=== PATIENT | male | born 1995 | race Caucasian/White ===

== ENCOUNTER 2025-08-18 23:34 | Inpatient (IN) | payer BC ==
[~2025-08-18] VITALS: Ht 170.2 cm; Wt 85.5 kg
--- NOTE | 2025-08-19 00:52 | Physician Documentation ---
History of Present Illness ~ Chief Complaint: Difficulty Breathing Stated Complaint: FLUID IN LUNG Time Seen by MD: 00:34 HPI 30-year-old male, type 1 diabetes, presenting with shortness of breath The patient has a recent history of pneumonia with what sounds like an empyema requiring a chest tube. The chest tube was recently removed. He has been doing okay, but then again started to worsen over the past several days. He reports increased shortness of breath. He does have some discomfort with deep breathing on the right side. He does have an ongoing cough. No fevers or other infectious symptoms. His shortness of breath is mostly with exertion, he does not really feel short of breath at rest currently. He went to an outside hospital today and had an extensive workup including an EKG, blood testing, and a chest x-ray. The x-ray showed a buildup of fluid in his lungs again on the right side. Reportedly they consulted their surgeon who recommended transfer for similar with CT surgery to consider a possible VATS. Medication Reconciliation Allergies: Coded Allergies: No Known Allergies (Unverified , 08/18/25) Review of Systems Constitutional: Denies: fever Respiratory: Reports: cough, SOB with exertion Cardiovascular: Reports: chest pain Physical Exam Vital Signs: Temperature: 98.7, Heart Rate: 107, Respiratory Rate: 22, BP: 141/75, Pulse Oximetry: 97, Weight: 77.000 Oxygen Flow Rate: 0 Physical Exam General: This is a pleasant and healthy appearing young man sitting calmly in bed, not in distress, mother at bedside HEENT: Atraumatic, oropharynx is moist Heart: Regular rate and rhythm, normal-appearing peripheral perfusion Lungs: The patient has significantly diminished breath sounds in the right l ower half of the lungs, clear breath sounds on the left. Normal oxygen saturation on room air Chest wall: The patient has a healing scar over the right lateral ribs consistent with previous chest tube location Neuro: Alert and oriented Psychiatric: Calm and cooperative with exam Progress Results/Orders Results/Orders Orders - JEAN MARR MD Ct Chest (08/19/25 00:55) Insulin Lispro 100 Unit/Ml 3ml (Humalog (08/19/25 01:05) Completed Orders - JEAN MARR MD Ct Chest (08/19/25 00:55) Insulin Lispro 100 Unit/Ml 3ml (Humalog (08/19/25 01:21) Medications Received in ER Medications (Trade) Dose Ordered Sig/Destiny Route PRN Reason Start Time Stop Time Status Last Admin Dose Admin (Humalog Kwikpen U-100 (100 Unit/ ml) 3ml) 5 unit HMO SQ 08/19/25 01:05 08/19/25 01:31 5 UNIT Vital Signs 08/18/25 08/19/25 23:45 00:41 Temp 98.7 Pulse 107 Resp 22 18 B/P (MAP) 141/75 Pulse Ox 97 O2 Flow Rate 0 Laboratory Tests Test 08/19/25 00:35 Glucometer 378 H EKG/XRAY/CT/US/VASC/MRI CT : Impression I personally interpreted the CT scan, and this shows a loculated right-sided pleural effusion Consults/PCP Consults/PCP : Additional Comment Consult: I spoke to the internal medicine service, for admission in the hospital Medical Decision Making Additional info obtained from: old records Findings I reviewed records from the outside hospital including blood work, EKG and chest x-ray Additional Infomation The patient presents with worsening shortness of breath after recent empyema and chest tube. On exam he does have findings concerning for increased fluid bu ildup in the right lower lung field. He had an extensive workup already today including blood testing that was unremarkable, normal cardiac biomarkers, and a chest x-ray. Plan: CT chest CT shows a loculated pleural effusion. Plan will be for admission of the medicine service with plan for a CT surgery consult for further treatment tomorrow. Departure Impression: Primary Impression: Exertional shortness of breath Additional Impression: Loculated pleural effusion Referrals: NO PRIMARY CARE PROVIDER (PCP) Signature Scribe Signature: na Attestation: JEAN Wilson MD Aug 19, 2025 00:52
--- NOTE | 2025-08-19 01:19 | RADIOLOGY REPORT ---
CT Chest without intravenous contrast INDICATION: sob, pleural effusion, recent chest tube, eval fluid TECHNIQUE: Multidetector spiral CT of the chest was performed from the lung apices to the upper abdomen. Axial, coronal and sagittal multiplanar reformats were performed. Radiation dose : 1. Chest: CTDI volume is 13.79 mGy. Dose-length product is 473.53 mGy*cm The dose indicators for CT are the volume computed tomography (CT) dose index (CTDIvol) and the dose length product (DLP), and are measured in units of mGy and mGy-cm, respectively. These indicators are not patient dose, but values generated from the CT scanner acquisition factors. The report includes radiation exposure data for exposures received during this examination. Comparison: None Findings: Lower neck: Normal thyroid. Lungs: Moderate atelectatic changes along the periphery of the right lung. Minimal dependent atelectasis changes within the basal left lower lobe. Heart/Vascular Structures: Normal heart size. No pericardial effusion. Lymph Nodes: Multiple low volume mediastinal and bilateral hilar lymph nodes, likely reactive. Pleura: Moderate loculated appearing right-sided pleural effusion with a small volume of air in the right pleural space. Suspect some pleural thickening. Contrast not administered. Small left-sided primal fusion. Musculoskeletal: No acute osseous abnormality. Soft tissues: Normal. Upper abdomen: Limited portions of the upper abdomen are unremarkable. IMPRESSION: Moderate loculated appearing right-sided pleural effusion that appears prominently fluid density. Suspected underlying pleural thickening, better assessed with contrast Moderate atelectasis song the periphery of the right lung. Radiation optimization: All CT scans at this facility use at least one of these dose optimization techniques: automated exposure control mA and/or kV adjustment per patient size (includes targeted exams where dose is matched to clinical indication) or iterative reconstruction.
[2025-08-19] MEDS: INSULIN LISPRO 100 UNIT/ML INSULN.PEN MULTI-DOSE SQ SCH ×3 (01:31→12:00)
[2025-08-19] MEDS: INSULIN LISPRO 100 UNIT/ML INSULN.PEN MULTI-DOSE SQ ONE (01:40)
[2025-08-19 02:20] LABS: MEAN PLATELET VOLUME 7.8 FL (7.4-10.4); RED CELL DISTRIBUTION WIDTH 13.2 % (11.5-14.5)
[2025-08-19 02:28] LABS: INR 1.1 INR
[2025-08-19 02:45] LABS: PLATELET ESTIMATE INCREASED
[2025-08-19 02:48] LABS: CREATININE 1.73 MG/DL (0.60-1.10); TOTAL CARBON DIOXIDE 25.4 MMOL/L (24-32); eCRCL 59 ML/MIN; eGFR 47 ML/MIN
[2025-08-19] MEDS ORDERED: magnesium Cl slow-release 64mg tablet PO PRN (03:15)
[2025-08-19] MEDS ORDERED: HYDROcodone/acetaminophen 5mg/325mg tablet PO PRN (03:15)
[2025-08-19] MEDS ORDERED: magnesium sulf-water 4G/100mL 100 ML IV PRN (03:15)
[2025-08-19] MEDS ORDERED: magnesium hydroxide 30ml (MOM) UD suspension PO PRN (03:15)
[2025-08-19] MEDS ORDERED: potassium Cl 20 mEq SR tablet PO PRN ×2 (03:15)
[2025-08-19] MEDS ORDERED: magnesium sulf-water 2g/50mL 50 ML IV PRN (03:15)
[2025-08-19] MEDS ORDERED: potassium Cl 40MEQ/1/2NS 520ml 520 ML IV PRN (03:15)
[2025-08-19] MEDS ORDERED: dextrose 50%-water 50ml dispensing syringe IV PRN ×3 (03:20→09:55)
[2025-08-19] MEDS ORDERED: glucagon, human recombinant 1mg kit SUBCUT PRN ×2 (03:20→09:55)
[2025-08-19] MEDS ORDERED: DEXTROSE 15 GM of carb/4 tabs (each vial/BOTTLE has 4 tablets) PO PRN ×3 (03:20→09:55)
--- NOTE | 2025-08-19 03:37 | HISTORY AND PHYSICAL-Residence ---
History & Physical Providers to CC Resident Creating Document: LOYDARUBAASCENCION ~ History of Present Illness Primary Medical Doctor: Eugene Reason for Admit\Complaint: Right-side pleural effusion History of Present Illness This is in 30-year-old male patient with a past medical history of type 1 diabetes mellitus who was transferred from [facility] due to right-sided loculated pleural effusion. Patient had severe shortness of breath, productive cough and chest tightness few weeks ago, was admitted at [facility] [place] on August 02 for pneumonia with parapneumonic effusion. Patient was treated with thoracocentesis, chest tube and IV antibiotics. Chest tube was removed and he was discharged on August 10 with p.o. cefdinir. Patient returned today to the hospital due to persistent shortness of breath with exertion, which is stable since discharge. Patient has been feeling weak but denies fever, chills, nocturnal sweating or productive cough. He also complains of nausea and diarrhea, denies abdominal pain or urinary symptoms. This is the 1st episode of pneumonia and he denies any tobacco or drug history. Allergies: Coded Allergies: No Known Allergies (Unverified , 08/18/25) Past Medical History Past Medical History Type 1 diabetes mellitus complicated with peripheral neuropathy Past Surgical History Surgical History Comment None reported Past Social History Smoking: Non-Smoker Alcohol Use: None Drug Use: None Lives with: Other (Girlfriend) Lives In: Home Occupation: employed (Road construction) ROS Constitutional: Reports: malaise, weakness; Denies: fever Eyes: Denies: no symptoms reported, see HPI, pain, discharge, blurred vision, double vision, itching, photophobia, redness, tearing, other ENT: Denies: no symptoms reported, see HPI, ear pain, ear bleeding, ear discharge, hearing loss, ear ringing, nose pain, nose bleeding, nose congestion, nose discharge, throat pain, throat swelling, voice change, mouth pain, mouth bleeding, mouth swelling, other Respiratory: Reports: cough, SOB with exertion Cardiovascular: Reports: chest pain Gastrointestinal: Reports: nausea, diarrhea Genitourinary: Denies: no symptoms reported, see HPI, burning, discharge, dysuria, frequency, flank pain, hematuria, incontinence, pain, decreased urine output, urgency, other Male Genitalia: Denies: no symptoms reported, see HPI, penile discharge, penile sore, testicular pain, testicular swelling, other Neurological: Denies: no symptoms reported, see HPI, speech problem, headache, dizziness, fainting, tingling, left sided numbness, right sided numbness, left sided weakness, right sided weakness, problems walking, unable to move lower ext, unable to move upper ext, petit mal seizures, tonic-clonic seizures, cognitive dysfunction, other Musculoskeletal: Denies: no symptoms reported, see HPI, pain, swelling, back pain, gout, joint pain, joint swelling, muscle pain, muscle swelling, muscle stiffness, neck pain, other Integumentary: Denies: no symptoms reported, see HPI, rash, itching, lesions, lumps, bruise(s), wound(s), laceration(s), dryness, change in color, other Allergic/Immunologic: Denies: no symptoms reported, see HPI, hives, itching, frequent infections, difficulty healing, other Hematologic/Lymphatic: Denies: no symptoms reported, see HPI, anemia, blood clots, easy bleeding, easy bruising, swollen glands, other Endocrine: Denies: no symptoms reported, see HPI, excessive sweating, flushing, intolerance to cold, intolerance to heat, increased hunger, increased thrist, increased urine, unexplained weight gain, unexplained weight loss, other Psychiatric: Denies: no symptoms reported, see HPI, depression, anxiety, sleeplessness, hopeless, suicidal, hallucinations, other Exam Vitals: Vital Signs Date Time Temp Pulse Resp B/P (MAP) Pulse Ox O2 Delivery O2 Flow Rate FiO2 08/19/25 03:23 99 16 150/84 (106) 94 08/19/25 00:30 0 08/18/25 23:45 98.7 General: General: Awake and alert, no acute distress HEENT: Conjunctiva pink, Sclera clear, Mucus Membranes dry Neck: No masses and tenderness Resp: Unlabored. Decreased breath sounds in the right lung base associated with crackles. No wheezing noted. Cardiovascular: Regular Rate and rhythm, normal S1 and S2 without murmur, rub or gallop Abdomen: Slightly distended, soft and nontender, no organomegaly, no guarding and rigidity, bowel sounds present Neuro: No focal weakness in the upper and lower limb muscles, normal reflexes bilaterally. Cranial nerves II-XII grossly intact Extremities: 1+ lower extremity peripheral edema (chronic) Skin: Warm and Dry Psych: Calm and cooperative at the time of my visit. Diagnostic Data Last Recorded Lab Results: 08/19/25 0203 08/19/25 0203 Diagnostic Data: Laboratory Tests Test 08/19/25 02:03 Prothrombin Time 11.4 SECONDS (9.0-12.0) INR International Normalized Ratio 1.1 INR Coagulation Comments Advance Care Planning Advanced Care plannin - 30 Minutes (I have discussed advanced care directives in detail. Patient requests full code status.) Additional Plan Assessment 30-year-old male patient transferred from [facility] [place] due to parapneumonic loculated pleural effusion. Sepsis secondary to complicated community-acquired pneumonia (3 SIRS criteria + source of infection) Persistent right side parapneumonic effusion with loculation Possibly complicated by diabetic immunosuppression Patient presented initially on August 02 for productive cough, chest tightness and shortness for breath Was treated with thoracocentesis, chest tube was discharged on August 10 with p.o. cefdinir Return at [facility] [place] for persistent shortness of breath after discharge No fever, chills, chest pain or productive cough present now WBC 13.1, pending procalcitonin and ESR Currently on room air Chest CT: Moderate loculated appearing right-sided pleural effusion with a small volume of air in the right pleural space. Suspect some pleural thickening. Plan Started on Zosyn and IV fluids Ordered blood cultures Incentive spirometry Pending report from [facility] [place] with previous culture Cardiothoracic surgery consult in the morning for possible VATS procedure Uncontrolled type 1 diabetes mellitus complicated with peripheral neuropathy Patient states insulin compliance On 39 units of glargine at bedtime Placed on high dose hyper/hypoglycemia protocol Ordered A1c Adjust accordingly Acute kidney injury, possibly secondary to vasomotor nephropathy Longstanding diabetes, poor oral intake and sepsis as contributors Cr 1.73, BUN 19, no baseline creatinine to compare Ordered urine lytes Received 1000 mL of lactated ringer bolus Started on lactated ringer 100 mL/hr Code Status: Full code DVT prophylaxis: Heparin Analgesia/sedation: Morphine/[place] Line/tube: PIV GI prophylaxis: None Nutrition: NPO for now Prognosis: Guarded Physical therapy: Not needed at this moment Disposition: Admit to ortho floor. Cardiothoracic surgery consult pending. Patient evaluated using HIPPA compliant AV device Agree with plans as discussed with the resident Sona Rich MD Date of Service: Aug 19, 2025 Billing Provider: AMEENA WOODS MD, LUCAS, RES Aug 19, 2025 03:36 SONA RICH MD Aug 19, 2025 04:23
[2025-08-19] MEDS: insulin glargine (Lantus) pen - multi-dose SQ ONE ×2 (03:52→04:13)
[2025-08-19] MEDS: ringers solution, lacted 1,000 ML IV ONE (04:10)
[2025-08-19 05:29] LABS: LEUKOCYTE ESTERASE ,URINE NEGATIVE (Neg); NITRITES, URINE NEGATIVE (Neg); OCCULT BLOOD,URINE MODERATE (Neg)
[2025-08-19 05:30] LABS: UA COLLECTION TYPE CLN CATCH MIDSTREAM
[2025-08-19 05:35] LABS: HYALINE CASTS 0-3 /LPF (NEGATIVE); SQUAMOUS EPITHELIAL CELL,UR NONE SEEN /LPF (FEW)
[2025-08-19 05:36] LABS: OSMOLALITY UA 548.0 MOSM/K (50-1400)
[2025-08-19 05:37] LABS: CREATININE,URINE RANDOM 57.0 MG/DL
[2025-08-19] MEDS: ringers solution, lacted 1,000 ML IV SCH (05:47)
[2025-08-19 06:55] LABS: OSMOLALITY 321 MOSM/K (280-300)
[2025-08-19] MEDS: docusate sod 100mg capsule PO SCH (08:00)
[2025-08-19] MEDS: K and/or MAG REPLACEMENT MC SCH (08:00)
[2025-08-19] MEDS: heparin, porcine 5000 units/ml vial SQ SCH (08:35)
[2025-08-19] MEDS: piperacillin/tazo 4.5gm/100ml 100 ML IV SCH (09:32)
[2025-08-19 09:57] VITALS: BP 149/94; PULSE 97; RESP 18; TEMP 97.8; O2SAT 96
[2025-08-19 10:00] VITALS: BP 136/83; PULSE 94; RESP 19; TEMP 98.3; O2SAT 93
[2025-08-19] MEDS: dextrose 50%-water 50ml dispensing syringe IV PRN (11:07)
[2025-08-19] MEDS ORDERED: INSU100I8 SQ (11:17)
[2025-08-19] MEDS ORDERED: INSU200I4 SQ (11:17)
[2025-08-19 13:09] VITALS: RESP 18; O2SAT 96
[2025-08-19] MEDS: LIDOcaine 1% (10mg/ml)w/preservative inj. 20ml MDV SQ ONE (14:35)
[2025-08-19] MEDS ORDERED: LIDOcaine-PF 1% 20mL vial 20 ML VIAL IJ ONE (17:05)
--- NOTE | 2025-08-19 17:24 | PROCEDURE NOTE- Residance ---
Procedure Note Providers to ~ Description Chest Tube Procedure Note INDICATION: Right Loculated Pleural Effusion PROCEDURE CRIPPLE CUTTER: ATTENDING PHYSICIAN: In attendance (Y/N) _Y CONSENT: Consent was obtained prior to the procedure. Indications, risks, and benefits were explained at length. PROCEDURE SUMMARY: A time out was performed and after the chest x-ray was reviewed, the appropriate side was confirmed and marked. My hands were washed immediately prior to the procedure. I wore a sterile gloves throughout the procedure. The patient was prepped and draped in a sterile manner using chlorhexidine scrub after the patient was positioned in the usual fashion. A total of ml of 1% lidocaine was used to anesthesize the skin, subcutaneous tissue, superior aspect of the rib periosteum and parietal pleura. A 2 cm incision was then made parallel to the rib in the midaxillary line at the level of the space of 5th rib. The subcutaneous tissue superficial and superior to the rib was dissected bluntly to the level of the pleura. Under ultrasound guidance. The pleura was then entered was noted from the pleural space. The disruption in the parietal pleura was expanded bluntly and a finger was inserted and swept carefully in all directions. A Pigtail catheter was then inserted using my finger as a guide . The chest tube was directed and inserted easily. The chest tube was sutured to the skin at the insertion site, and connected securely with tape to a pleurovac. A sterile occlusive dressing was placed over the insertion site. No immediate complications were noted. A post-procedure chest x-ray is pending at the time of this note. Estimated blood loss is less than 1 ml. Date of Service: Aug 19, 2025 Billing Provider: ELISEO FABIAN MD, SHAMS, RES Aug 19, 2025 17:24
--- NOTE | 2025-08-19 17:26 | CONSULTATION REPORT - RESIDENT ---
Consult Providers to CC Resident Creating Document: IAN MANRIQUE RES History of Present Illness Reason for Admit\Complaint: Shortness of breaths History of Present Illness The patient is a 30-year-old male with type 1 diabetes, who was initially admitted to [facility] on August 02 with pneumonia complicated by parapneumonic infusion. He underwent thoracentesis with removal of more than 1.5 L of fluid, followed by chest tube placement and IV antibiotics. On August 10, the chest tube removed and he was discharged home with oral antibiotics. He subsequently returned to the transferring facility with persistent exertional shortness of breath and was referred here for further management. Dr. Hernandez was consulted for evaluation of recurrent right-sided loculated pleural effusion and possible chest tube placement Allergies: Coded Allergies: No Known Allergies (Unverified , 08/18/25) Home Medications Home Medications Active Reported Humalog (Insulin Lispro) 100 Unit/Ml Insuln.pen 0-60 Units SQ DAILY Tresiba Flextouch U-200 (Insulin Degludec) 200 Unit/Ml (3 Ml) Insuln.pen 39 Units SQ HS Past Medical History Past Medical History Diabetes type 1, peripheral neuropathies Past Surgical History Surgical History Comment Non ROS ROS As stated above in the HPI, otherwise all systems are reviewed and negative. Exam Vitals: Vital Signs Date Time Temp Pulse Resp B/P (MAP) Pulse Ox O2 Delivery O2 Flow Rate FiO2 08/19/25 13:09 18 96 Room Air 08/19/25 09:57 97.8 97 149/94 (112) 08/19/25 06:02 0 General: Awake and Alert, no acute distress. HEENT: Conjunctiva pink, Sclera clear, Mucus Membranes moist. Neck: Supple without masses and tenderness. Resp: Unlabored. Lungs clear to auscultation bilaterally. Heart: Regular Rate and rhythm, normal S1 and S2 without murmur, rub or gallop. Abdomen: Soft and non tender no organomegaly Extremities: No cyanosis,clubbing or edema. Skin: Warm and Dry. Diagnostic Data Last Recorded Lab Results: 08/19/25 0203 08/19/25 0203 Diagnostic Data: Laboratory Tests Test 08/19/25 02:03 Prothrombin Time 11.4 SECONDS (9.0-12.0) INR International Normalized Ratio 1.1 INR Coagulation Comments Additional Plan The patient has a right-sided loculated pleural effusion. Plan is to place a pigtail catheter for drainage and administer intrapleural tPA/DNase to facilitate resolution of the loculation. He is currently being treated with IV Zosyn by the primary team for pneumonia/parapneumonic effusion. His other comorbidities including type 1 diabetes mellitus with peripheral neuropathy; glucose control will be managed using the inpatient insulin protocol by the primary team. Ian Manrique Internal Medicine Resident, PGY-3 Date of Service: Aug 19, 2025 Billing Provider: ELISEO HERNANDEZ MD,IAN, RES Aug 19, 2025 17:26
[2025-08-19 18:00] VITALS: BP 153/90; PULSE 89; RESP 13; TEMP 98.2; O2SAT 98
[2025-08-19] MEDS: dornase alfa 2.5mg/2.5mL 10 MG in normal saline 50ml IV soln 20 ML IPL ONE (18:00)
[2025-08-19] MEDS: tPA-cathflo 2mg/2ml IV flush 15 MG in normal saline 50ml IV soln 15 ML IPL ONE (18:00)
[2025-08-19] MEDS: LIDOcaine 1% 30ml preserv. free vial IJ ONE (18:00)
--- NOTE | 2025-08-19 18:14 | RADIOLOGY REPORT ---
EXAM: DI CHEST,SINGLE VIEW HISTORY: POST CHEST TUBE PLACEMENT TECHNIQUE: 1 view of the chest COMPARISON: CT CT CHEST on DOS: 08/19/25 FINDINGS/IMPRESSION: LUNGS: Low lung volumes, which cause crowding of the bronchovascular markings. Small right-sided pleural effusion. Right-sided chest tube in place. Peripheral interstitial edema. Alveolar opacity in the right lung base. No pneumothorax. MEDIASTINUM: Normal cardiac size BONES: No acute osseous abnormality OTHER: None
[2025-08-19 20:00] VITALS: RESP 13; O2SAT 98
[2025-08-19] MEDS: insulin glargine (Lantus) pen - multi-dose SQ SCH (21:49)
[2025-08-19 22:00] VITALS: BP 151/84; PULSE 94; RESP 19; TEMP 98.6; O2SAT 96
[2025-08-20] MEDS: ondansetron/PF 4mg/2ml inj IV PRN (04:28)
[2025-08-20 06:00] VITALS: BP 132/83; PULSE 93; RESP 16; TEMP 98.2; O2SAT 98
--- NOTE | 2025-08-20 06:12 | RADIOLOGY REPORT ---
CHEST RADIOGRAPH Indication: CHEST TUBE CHECK Technique: 1 view of the chest Comparison: DI CHEST,SINGLE VIEW on DOS: 08/19/25, CT CT CHEST on DOS: 08/19/25, DI CHEST,SINGLE VIEW on DOS: 08/19/25 FINDINGS: Lines and Tubes: Right sided chest tube insitu Lungs: right basilar opacity. Pleura: improving right effusion No pneumothorax. Cardiomediastinal contours: Unremarkable Bones: No acute osseous abnormality. IMPRESSION: improving right effusion
[2025-08-20 06:55] LABS: MEAN PLATELET VOLUME 7.9 FL (7.4-10.4); RED CELL DISTRIBUTION WIDTH 13.3 % (11.5-14.5)
[2025-08-20 07:37] LABS: CREATININE 1.36 MG/DL (0.60-1.10); TOTAL CARBON DIOXIDE 27.7 MMOL/L (24-32); eCRCL 75 ML/MIN; eGFR 62 ML/MIN
[2025-08-20 08:00] VITALS: RESP 16; O2SAT 98
[2025-08-20] MEDS: DEXTROSE 15 GM of carb/4 tabs (each vial/BOTTLE has 4 tablets) PO PRN (08:07)
[2025-08-20] MEDS ORDERED: DORNASE ALFA 1 MG/ML IH SCH (08:50)
[2025-08-20 11:00] VITALS: BP 135/81; PULSE 94; RESP 16; TEMP 97.5; O2SAT 95
[2025-08-20] MEDS: INSULIN LISPRO 100 UNIT/ML INSULN.PEN MULTI-DOSE SQ SCH (12:00)
--- NOTE | 2025-08-20 14:00 | PROGRESS NOTE ---
Subjective Subjective Patient is seen today. We placed a right 12 Tanzanian chest tube for suspected empyema. Reason for visit: Pulmonology follow-up Reviewed: Care Plan, H&P, Labs, Medications, Radiology Review of Systems Changes from previous H/P or p: No Changes Daily Progress Note Exam Vitals Vital Signs Date Time Temp Pulse Resp B/P (MAP) Pulse Ox O2 Delivery O2 Flow Rate FiO2 08/20/25 11:00 97.5 94 16 135/81 (99) 95 Room Air 08/19/25 06:02 0 Result Diagram: 08/20/25 0547 08/20/25 0547 Exam HEENT examination: N/C/AT, PERRLA Neck: Supple with no jugular venous distention no lymphadenopathy. Chest: Symmetric expansion bilaterally Pulmonary: Diminished breath sounds right side Abdomen: Soft nontender Extremities: No cyanosis clubbing edema. Results Coagulation Studies Laboratory Tests Test 08/19/25 02:03 Prothrombin Time 11.4 SECONDS (9.0-12.0) INR International Normalized Ratio 1.1 INR Coagulation Comments VTE VTE Risk Score VTE Risk Score Reference Ranges: Score 0-1 = Low Risk (Aggressive mobilization; early ambulation; no VTE prophylaxis required) Score 2: Moderate Risk (Intermittent/Pneumatic Compression Device OR Lovenox/Heparin/Coumadin) Score 3-4: High Risk (Intermittent/Pneumatic Compression Device AND Lovenox/Heparin/Coumadin) Score > or = 5: Highest Risk (Intermittent/Pneumatic Compression Device AND Lovenox/Heparin/Coumadin) Assessment/Plan Plan Status post right chest tube utilizing a 12 Tanzanian tube. He has drained about 1600 cc of serosanguineous fluid. Unfortunately there was no pleural fluid that was sent for analysis. We will continue with instillation of 15 mg of tPA and 10 mg of dornase for a total of six doses. ELISEO FABIAN MD Aug 20, 2025 14:00
--- NOTE | 2025-08-20 17:33 | PROGRESS NOTE- Residence ---
Progress Note - Resident Providers to CC Resident Creating Document: TYREE ROMEO RES ~ Antibiotic Timeout Antibiotic Ordered?: Yes Subjective Patient is seen today. Blood sugars are well controlled today. Cough is improving. Patient had 1600 mL output from the chest tube today. Patient missed dose of tPA and dornase luz due to non availability in the pharmacy. Patient received one dose of far. Patient needs five more doses before discharge. Objective Vital Signs Date Time Temp Pulse Resp B/P (MAP) Pulse Ox O2 Delivery O2 Flow Rate FiO2 08/20/25 15:27 16 08/20/25 11:00 97.5 94 135/81 (99) 95 Room Air 08/19/25 06:02 0 Result Diagram: 08/20/25 0547 08/20/25 0547 General: Awake and alert, no acute distress HEENT: Conjunctiva pink, Sclera clear, Mucus Membranes moist Neck: No masses and tenderness Resp: Unlabored. Decreased breath sounds in the right lung base associated with crackles. No wheezing noted. Cardiovascular: Regular Rate and rhythm, normal S1 and S2 without murmur, rub or gallop Abdomen: Slightly distended, soft and nontender, no organomegaly, no guarding and rigidity, bowel sounds present Neuro: No focal weakness in the upper and lower limb muscles, normal reflexes bilaterally. Cranial nerves II-XII grossly intact Extremities: 1+ lower extremity peripheral edema (chronic) Skin: Warm and Dry Psych: Calm and cooperative at the time of my visit. Coagulation Studies Laboratory Tests Test 08/19/25 02:03 Prothrombin Time 11.4 SECONDS (9.0-12.0) INR International Normalized Ratio 1.1 INR Coagulation Comments Assessment Assessment This is in 30-year-old male patient with a past medical history of type 1 diabetes mellitus who was transferred from [facility] due to right-sided loculated pleural effusion. Patient had severe shortness of breath, productive cough and chest tightness few weeks ago, was admitted at [facility] on August 02 for pneumonia with parapneumonic effusion. Patient was treated with thoracocentesis, chest tube and IV antibiotics. Chest tube was removed and he was discharged on August 10 with p.o. cefdinir. Patient returned today to the hospital due to persistent shortness of breath with exertion, which is stable since discharge. Patient has been feeling weak but denies fever, chills, nocturnal sweating or productive cough. He also complains of nausea and diarrhea, denies abdominal pain or urinary symptoms. This is the 1st episode of pneumonia and he denies any tobacco or drug history. Plan Plan Sepsis secondary to complicated community-acquired pneumonia (3 SIRS criteria + source of infection) Persistent right side parapneumonic effusion with loculation s/p chest tube placement Possibly complicated by diabetic immunosuppression Patient presented initially on August 02 for productive cough, chest tightness and shortness for breath Was treated with thoracocentesis, chest tube was discharged on August 10 with p.o. cefdinir Return at [facility] for persistent shortness of breath after discharge No fever, chills, chest pain or productive cough present now WBC 13.1, pending procalcitonin and ESR Currently on room air Chest CT: Moderate loculated appearing right-sided pleural effusion with a small volume of air in the right pleural space. Suspect some pleural thickening. Plan Started on Zosyn and IV fluids Ordered blood cultures Incentive spirometry Pending report from [facility] with previous culture Home Security Professional placed chest tube. Patient had 1600 mL output from the chest tube so far. Patient needs five more doses of tPA and dornase luz. First dose administered, other doses were not administered today due to unavailability in the pharmacy Uncontrolled type 1 diabetes mellitus complicated with peripheral neuropathy Patient states insulin compliance Switched from medium dose protocol to low-dose insulin protocol due to episodes of hypoglycemia A1c 10.2 Acute kidney injury, possibly secondary to vasomotor nephropathy, improving Longstanding diabetes, poor oral intake and sepsis as contributors Cr 1.73, BUN 19, at admission no baseline creatinine to compare, improving with fluids Ordered urine lytes which showed indeterminate picture Received 1000 mL of lactated ringer bolus Started on lactated ringer 100 mL/hr Code Status: Full code DVT prophylaxis: Heparin Analgesia/sedation: Morphine/[place] Line/tube: PIV GI prophylaxis: None Nutrition: Carb controlled diet Prognosis: Guarded Physical therapy: Not needed at this moment Disposition: Continue care in ortho floor. Chest tube management per fountain manager. Tyree Clark MD PGY2 internal medicine resident Date of Service: Aug 20, 2025 Billing Provider: JUAN MIGUEL DUTTON MD Common Visit Codes: [id number] INP/OBS CARE(HIGH) TYREE ROMEO, RES Aug 20, 2025 17:33 JUAN MIGUEL DUTTON MD Aug 21, 2025 17:24
[2025-08-20 18:00] VITALS: BP 136/86; PULSE 94; RESP 15; TEMP 99.4; O2SAT 95
[2025-08-20] MEDS ORDERED: ANGIO ICATH SCH (20:00)
[2025-08-20] MEDS ORDERED: NORMAL SALINE ICATH SCH (20:00)
[2025-08-20] MEDS ORDERED: ALTEPLASE ICATH SCH (20:00)
[2025-08-20 22:00] VITALS: BP 136/81; PULSE 92; RESP 15; TEMP 97.4; O2SAT 96
[2025-08-21] VITALS (8 sets, daily range): BP systolic 124–174; BP diastolic 74–84; PULSE 93–104; RESP 14–18; TEMP 97.4–100.1; O2SAT 93–95
[2025-08-21 06:10] LABS: MEAN PLATELET VOLUME 8.1 FL (7.4-10.4); RED CELL DISTRIBUTION WIDTH 13.3 % (11.5-14.5)
[2025-08-21 07:08] LABS: CREATININE 1.22 MG/DL (0.60-1.10); TOTAL CARBON DIOXIDE 28.9 MMOL/L (24-32); eCRCL 84 ML/MIN; eGFR 70 ML/MIN
[2025-08-21] MEDS: HYDROcodone/acetaminophen 10/325mg tab PO PRN (07:22)
--- NOTE | 2025-08-21 07:51 | RADIOLOGY REPORT ---
CHEST RADIOGRAPH Indication: CHEST TUBE CHECK Technique: 1 view of the chest Comparison: DI CHEST,SINGLE VIEW on DOS: 08/20/25, DI CHEST,SINGLE VIEW on DOS: 08/19/25, CT CT CHEST on DOS: 08/19/25, DI CHEST,SINGLE VIEW on DOS: 08/20/25 FINDINGS: Lines and Tubes: Right sided chest tube insitu Lungs: right basilar opacity. Pleura: stable right effusion No pneumothorax. Cardiomediastinal contours: Unremarkable Bones: No acute osseous abnormality. IMPRESSION: 1. stable right effusion
[2025-08-21] MEDS ORDERED: tPA-cathflo 2mg/2ml IV flush 15 MG in normal saline 50ml IV soln 15 ML IPL SCH (08:00)
[2025-08-21] MEDS ORDERED: LIDOCAINE 1% w/preservative (10 MG/ML) inj. 10mL VIAL IJ SCH (08:00)
[2025-08-21] MEDS ORDERED: dornase alfa 2.5mg/2.5mL 10 MG in normal saline 50ml IV soln 20 ML IPL SCH ×2 (08:00→16:53)
[2025-08-21] MEDS: azithromycin/NS 500mg/250ml 250 ML IV SCH (10:52)
[2025-08-21] MEDS ORDERED: morphine 4 MG/ML inj SYRINge IV PRN (11:41)
[2025-08-21] MEDS: polyethylene glycol 3350 17gm powd pack PO SCH (12:04)
[2025-08-21] MEDS ORDERED: ASPI-130 PO (12:19)
--- NOTE | 2025-08-21 14:25 | RADIOLOGY REPORT ---
Indication: RIGHT LOCULATED PLEURAL EFFUSION S/P Technique: CT axial images of the chest are obtained without contrast. Coronal and sagittal reformats were obtained. Radiation Dose Information: CTDI volume is 17.2 mGy. Dose-length product is 603 mGy*cm Comparison: CT CT CHEST on DOS: 08/19/25 FINDINGS: The trachea is patent. Interval placement of a right chest tube. Loculated right pleural effusion / hydropneumothorax. Overall the right pleural effusion component is decreased since the previous examination. Numerous air loculations throughout the right pleural effusion peak Patchy right lung airspace consolidation diffusely most pronounced in the right lower lobe. Left lower lobe consolidation/atelectasis. Small left pleural effusion. Heart normal in size. Small pericardial effusion. Pretracheal lymph nodes measuring up to 14 mm. Subcarinal lymph node measuring 23 mm. No supraclavicular, axillary lymphadenopathy. Soft tissue edema / anasarca. IMPRESSION: Limited evaluation without contrast. Interval placement of right chest tube. Right hydropneumothorax /multiloculated right pleural effusion which is overall small to moderate in size and decreased since the previous CT examination. Small left pleural effusion. Patchy right lung airspace consolidation. Left lower lobe consolidation/atelectasis. Follow-up to resolution. Mediastinal lymphadenopathy. Other findings as described.
--- NOTE | 2025-08-21 14:26 | PROGRESS NOTE- Residence ---
Progress Note - Resident Providers to CC Resident Creating Document: RANDALL JIMENES RES ~ Antibiotic Timeout Antibiotic Ordered?: Yes Subjective Seen and examined the patient at bedside. Blood sugars are controlled and he is getting some hypoglycemic episodes. We did not get much pleural fluid the chest tube and we consulted Dr. Santiago and they evaluated the patient and recommended for reimaging with CT scan chest. Objective Vital Signs Date Time Temp Pulse Resp B/P (MAP) Pulse Ox O2 Delivery O2 Flow Rate FiO2 08/21/25 10:15 98.5 95 16 139/81 (100) 93 Room Air 08/21/25 08:00 0.0 Result Diagram: 08/21/2545608/21/25456 General: Awake and alert, no acute distress HEENT: Conjunctiva pink, Sclera clear, Mucus Membranes moist Neck: No masses and tenderness Resp: Unlabored. Decreased breath sounds in the right lung base associated with fine inspiratory crepitations, a little bit better than the previous days. No wheezing noted. Cardiovascular: Regular Rate and rhythm, normal S1 and S2 without murmur, rub or gallop Abdomen: Slightly distended, soft and nontender, no organomegaly, no guarding and rigidity, bowel sounds present Neuro: No focal weakness in the upper and lower limb muscles, normal reflexes bilaterally. Cranial nerves II-XII grossly intact Extremities: 1+ lower extremity peripheral edema (chronic) Skin: Warm and Dry Psych: Calm and cooperative at the time of my visit. Coagulation Studies Laboratory Tests Test 08/19/25 02:03 Prothrombin Time 11.4 SECONDS (9.0-12.0) INR International Normalized Ratio 1.1 INR Coagulation Comments Advance Care Planning Advanced Care plannin - 30 Minutes Assessment Assessment This is in 30-year-old male patient with a past medical history of type 1 diabetes mellitus who was transferred from [facility] due to right-sided loculated pleural effusion. Patient had severe shortness of breath, productive cough and chest tightness few weeks ago, was admitted at [facility] on August 02 for pneumonia with parapneumonic effusion. Patient was treated with thoracocentesis, chest tube and IV antibiotics. Chest tube was removed and he was discharged on August 10 with p.o. cefdinir. Patient returned today to the hospital due to persistent shortness of breath with exertion, which is stable since discharge. Patient has been feeling weak but denies fever, chills, nocturnal sweating or productive cough. He also complains of nausea and diarrhea, denies abdominal pain or urinary symptoms. This is the 1st episode of pneumonia and he denies any tobacco or drug history. Plan Plan Sepsis 2/2 bilateral pneumonia Unresolved Right parapneumonic effusion Right hydropneumothorax Status post chest tube placement Considering his underlying immunosuppression with type 1 diabetes mellitus and high blood sugars right parapneumonic effusion could be secondary to underlying bacterial infection or possible tuberculosis or possible rheumatoid arthritis and we are currently evaluating with [place], QuantiFERON gold test, CRP, RA factor. Chest CT on today showed right hydropneumothorax/multiloculated right pleural effusion, decreased when compared to the previous CT examination. Patchy right lung airspace consolidation. Left lower lobe consolidation. Medicine lymphadenopathy. We changed the antibiotic from Zithromax to levofloxacin and we will continue both Zosyn and levofloxacin in view of previous admission and treatment with antibiotics. We again consulted Dr. Santiago and he thinks that patient does not need the tPA and dornase and discontinued and recommended for monitoring of the fluid through chest tube. Director Of Player Personnel team is going to reassess on tomorrow whether to give the tPA or discontinue the chest tube. Dr Hernandez wants to follow this patient. Uncontrolled type 1 diabetes mellitus peripheral neuropathy A1c is 10.2 and hypoglycemia , glucose is in 60s Downgraded hyperglycemic/hypoglycemic protocol to low dose Humalog protocol and Lantus 10 units Acute kidney injury likely 2/2 renal tubular stasis Above likely secondary to sepsis Serum creatinine is down trended. Uterine lytes is more towards the renal tubular stasis. Code Status: Full code DVT prophylaxis: Heparin Analgesia/sedation: Morphine/[place] Line/tube: PIV GI prophylaxis: None Nutrition: 75 g Carb controlled diet Prognosis: Guarded Physical therapy: Ordered Randall Jimenes Internal medicine resident, PGY 2 Date of Service: Aug 21, 2025 Billing Provider: JUAN MIGUEL DUTTON MD Common Visit Codes: [id number] INP/OBS CARE(HIGH) RANDALL JIMENES, ASCENCION Aug 21, 2025 14:26 JUAN MIGUEL DUTTON MD Aug 21, 2025 18:27
[2025-08-21] MEDS ORDERED: ASPI1TAB5 PO (15:13)
[2025-08-21] MEDS: morphine 4 MG/ML inj SYRINge IV PRN (15:28)
[2025-08-21] MEDS: metoclopramide 5 mg/ml inj IV PRN (16:26)
[2025-08-21 16:29] LABS: BFSOURCE RIGHT PLEURAL FLD; PLEURAL FLUID PH 7.482 (7.63-7.65)
--- NOTE | 2025-08-21 16:32 | RADIOLOGY REPORT ---
Indication: PNEUMONIA, HEMATURIA Technique: CT axial images of the abdomen and pelvis are obtained without contrast. Coronal and sagittal reformats were obtained. Radiation Dose Information: CTDI volume is 18.5 mGy. Dose-length product is 1030 mGy*cm Comparison: CT chest from today FINDINGS: There is limited interpretation of the abdomen and pelvis without administration of intravenous contrast. Redemonstration of bibasilar airspace consolidation, eyaqr-[id number]-[id number]-left. Right pigtail catheter. Loculated right pleural effusion / hydropneumothorax. Small left pleural effusion. Adrenal glands, spleen, pancreas unremarkable in shape. Cholelithiasis. Liver unremarkable in shape. No hydronephrosis/ nephrolithiasis. Stomach is partially distended. Small bowel loops are normal in caliber. Moderate volume stool in the colon. No secondary signs for appendicitis. Mesenteric edema. Soft tissue edema/anasarca. Tiny amount of ascites fluid extending to the pelvis. Bladder partially distended. No inguinal lymphadenopathy. No aggressive osseous process. IMPRESSION: Limited evaluation without contrast. Bilateral pulmonary airspace consolidation as described on CT chest from today. Right hydro pneumothorax with loculated right pleural effusion component. Small left pleural effusion. Cholelithiasis. No hydronephrosis/ nephrolithiasis. Mesenteric edema. Soft tissue edema / anasarca. Small amount of ascites fluid. Other findings as described.
[2025-08-21 16:45] LABS: GLUCOSE,BODY FLUID 128 MG/DL; LDH,BODY FLUID 159 U/L; TOTAL PROTEIN,BODY FLUID 3.1 G/DL
[2025-08-21] MEDS: levoFLOXACIN-Levaquin 750MG/D5 150 ML IV SCH (17:03)
[2025-08-21 17:31] LABS: BFAPPEAR HAZY; BFCOLOR YELLOW; BFSOURCE RIGHT PLEURAL FLD; BFVOLUME 34.5 ML
[2025-08-21 17:32] LABS: BF RBC COUNT 2045 /CU MM; BF WBC COUNT 91 /CU MM (0-1000); LYMPHOCYTES,BODY FLUID 90 %; MONOCYTES,BODY FLUID 5 %; NEUTROPHILS,BODY FLUID 5 %
[2025-08-21] MEDS: dornase alfa 2.5mg/2.5mL 10 MG in normal saline 50ml IV soln 20 ML IPL SCH (18:38)
[2025-08-21] MEDS: LIDOCAINE 1% w/preservative (10 MG/ML) inj. 10mL VIAL IJ SCH (18:38)
[2025-08-21] MEDS: tPA-cathflo 2mg/2ml IV flush 15 MG in normal saline 50ml IV soln 15 ML IPL SCH (18:40)
--- NOTE | 2025-08-21 18:50 | CARDIOLOGY REPORT ---
APPROVED REPORT EXAM: Comprehensive 2D, Doppler, and color-flow Echocardiogram. Patient Location: 4[address] Blood Pressure: 147/81 mmHg Heart Rate: 103 bpm Rhythm: SINUS TACHYCARDIA Indications SHORTNESS OF BREATH CHEST PAIN BILATERAL PLEURAL EFFUSIONS PNEUMONIA Natural Resource Technician: none Previous echo: none 2D Dimensions RVDd 3.1 cm LA Diam 4.6 cm IVSd 1.1 (0.7-1.1cm) LVDd 4.4 cm PWd 1.1 (0.7-1.1cm) IVSs 1.3 (0.8-1.2cm) LVDs 3.1 (2.5-4.0cm) PWs 1.6 (0.8-1.2cm) LVOT Diameter 1.91 (1.8-2.4cm) LVEF(%) 57.5 (>50%) Ao Asc Diam. 3.26 cm IVC 19.66 mm FS (%) 30.0 % SV 49.4 ml CO 5.1 L/min M-Mode Dimensions Left Atrium(MM) 3.30 (2.5-4.0cm) Aortic Root 2.81 (2.2-3.7cm) Aortic Cusp Exc 1.82 (1.5-2.0cm) Biplane 2D LA Volumes LA ESV Index 22.51 mL/m2 Aortic Valve AoV Peak Alvarez. 184.2 cm/s AoV VTI 25.4 cm AO Peak GR. 13.6 mmHg AO Mean GR. 7 mmHg LVOT VTI 21.18 cm LVOT Peak Alvarez. 116.9 cm/s VINI(VTI)/BSA 2.39 cm2/m2 VINI (VTI) 2.39 cm2 Mitral Valve MV E Velocity 123.5 cm/s MV Peak Gr. 7 mmHg MV DECEL TIME 168 ms MV A Velocity 80.8 cm/s MV PHT 56 ms E/A Ratio 1.5 MVA (PHT) 3.93 cm2 MV VMax 130.3 cm/s TDI Medial E' P. V 14.49 cm/s E/Medial E' 8.5 Tricuspid Valve TR P. Velocity 276 cm/s RAP ESTIMATE 10 mmHg TR Peak Gr. 30 mmHg RVSP 40 mmHg Pulmonary Vein S1 Velocity 44.3 cm/s D2 Velocity 37.8 cm/s PVa Velocity 28.9 cm/s PVa Duration 68 msec LEFT VENTRICLE Normal LV size and wall thickness. Overall systolic function is normal. LVEF is 55-60%. RIGHT VENTRICLE RV is normal size and function. RVSP is estimated at 40 mmHg. ATRIA LA size is normal. AORTIC VALVE Trileaflet AV appears mildly sclerotic without stenosis or insufficiency. MITRAL VALVE Mild MV annular calcification without stenosis. Trace regurgitation. TRICUSPID VALVE TV appears structurally normal with trace regurgitation. PULMONIC VALVE Normal PV without stenosis, physiologic insufficiency. GREAT VESSELS Aortic root is normal in size. Ascending aorta is normal in size. The IVC is normal in size and collapses less than 50% with inspiration. PERICARDIUM Normal pericardium. No effusion. Left pleural effusion is present. Ascites is present. Other Information Study Quality: Adequate Conclusion Normal LV size and wall thickness. Overall systolic function is normal. LVEF is 55-60%. RV is normal size and function. RVSP is estimated at 40 mmHg. LA size is normal. Trileaflet AV appears mildly sclerotic without stenosis or insufficiency. Mild MV annular calcification without stenosis. Trace regurgitation. TV appears structurally normal with trace regurgitation. Normal pericardium. No effusion. Left pleural effusion is present. Ascites is present.
--- NOTE | 2025-08-21 18:56 | PROGRESS NOTE ---
Subjective Subjective Seen and examined the patient at bedside this evening. Came to instill tPA and dornase into his chest tube for loculated pleural effusion suspected to be empyema. Reason for visit: Pulmonology follow-up Reviewed: Care Plan, H&P, Labs, Medications, Radiology Review of Systems Changes from previous H/P or p: No Changes Daily Progress Note Exam Vitals Vital Signs Date Time Temp Pulse Resp B/P (MAP) Pulse Ox O2 Delivery O2 Flow Rate FiO2 08/21/25 18:43 20 08/21/25 16:45 100.1 101 147/81 (103) 94 Room Air 08/21/25 08:00 0.0 Result Diagram: 08/21/25 0457 08/21/25 045 Exam HEENT examination: N/C/AT, PERRLA Neck: Supple with no jugular venous distention no lymphadenopathy. Chest: Symmetric expansion bilaterally Pulmonary: Diminished breath sounds right side Abdomen: Soft nontender Extremities: No cyanosis clubbing edema. Results Coagulation Studies Laboratory Tests Test 08/19/25 02:03 Prothrombin Time 11.4 SECONDS (9.0-12.0) INR International Normalized Ratio 1.1 INR Coagulation Comments VTE VTE Risk Score VTE Risk Score Reference Ranges: Score 0-1 = Low Risk (Aggressive mobilization; early ambulation; no VTE prophylaxis required) Score 2: Moderate Risk (Intermittent/Pneumatic Compression Device OR Lovenox/Heparin/Coumadin) Score 3-4: High Risk (Intermittent/Pneumatic Compression Device AND Lovenox/Heparin/Coumadin) Score > or = 5: Highest Risk (Intermittent/Pneumatic Compression Device AND Lovenox/Heparin/Coumadin) Assessment/Plan Assessment This is in 30-year-old male patient with a past medical history of type 1 diabetes mellitus who was transferred from [facility] due to right-sided loculated pleural effusion. Patient had severe shortness of breath, productive cough and chest tightness few weeks ago, was admitted at [facility] on August 02 for pneumonia with parapneumonic effusion. Patient was treated with thoracocentesis, chest tube and IV antibiotics. Chest tube was removed and he was discharged on August 10 with p.o. cefdinir. Patient returned today to the hospital due to persistent shortness of breath with exertion, which is stable since discharge. Patient has been feeling weak but denies fever, chills, nocturnal sweating or productive cough. He also complains of nausea and diarrhea, denies abdominal pain or urinary symptoms. This is the 1st episode of pneumonia and he denies any tobacco or drug history. Plan Status post right chest tube thoracostomy utilizing a 12 [place] tube via ultrasound. He has drained about 1650 cc of serosanguineous fluid. Unfortunately there was no pleural fluid that was sent for analysis. We will continue with instillation of 15 mg of tPA and 10 mg of dornase for a total of six doses. Expected Outcome/Goals Expected Outcomes/Goals: maintain stable wt, meet at least 75% of estimated nutrient needs, bowel regularity, optimal skin integrity, BG 80-180 mg/dl ELISEO FABIAN MD Aug 21, 2025 18:56
[2025-08-21] MEDS: lactose-reduced food (Ensure Enlive) - 237ml bottle PO SCH (19:36)
[2025-08-21] MEDS: insulin glargine (Lantus) pen - multi-dose SQ SCH (21:00)
[2025-08-22 02:14] VITALS: BP 141/80; PULSE 107; RESP 20; O2SAT 93
[2025-08-22 05:16] LABS: MEAN PLATELET VOLUME 7.5 FL (7.4-10.4); RED CELL DISTRIBUTION WIDTH 13.5 % (11.5-14.5)
[2025-08-22 05:42] LABS: CREATININE 1.55 MG/DL (0.60-1.10); TOTAL CARBON DIOXIDE 29.4 MMOL/L (24-32); eCRCL 66 ML/MIN; eGFR 53 ML/MIN
[2025-08-22 06:00] VITALS: BP 116/70; PULSE 98; RESP 17; TEMP 97.4; O2SAT 95
[2025-08-22 06:25] VITALS: BP 129/80; RESP 24; O2SAT 95
[2025-08-22] MEDS ORDERED: levoFLOXACIN-Levaquin 750MG/D5 150 ML IV SCH (08:00)
--- NOTE | 2025-08-22 08:09 | RADIOLOGY REPORT ---
EXAM: DI CHEST,SINGLE VIEW Indication: CHEST TUBE CHECK Technique: Single frontal view of the chest was obtained Comparison: CT CT CHEST on DOS: 08/21/25, DI CHEST,SINGLE VIEW on DOS: 08/21/25, DI CHEST,SINGLE VIEW on DOS: 08/20/25, DI CHEST,SINGLE VIEW on DOS: 08/19/25, CT CT CHEST on DOS: 08/19/25 FINDINGS: Lines and Tubes: Right pigtail chest tube catheter is visualized. Lungs: Bibasilar opacities. Pleura: Small bilateral pleural effusions. No pneumothorax. Cardiomediastinal contours: Unremarkable Bones: No acute osseous abnormality. IMPRESSION: Small bilateral pleural effusions. Right chest tube is visualized.
[2025-08-22 10:00] VITALS: BP 123/66; PULSE 104; RESP 18; TEMP 97.5; O2SAT 94
[2025-08-22 11:28] LABS: LACTATE DEHYDROGENASE 181 U/L (85-227)
[2025-08-22] MEDS: bisacodyl 10mg suppository rectal RC STA (11:43)
--- NOTE | 2025-08-22 13:18 | PROGRESS NOTE- Residence ---
Progress Note - Resident Providers to CC Resident Creating Document: RANDALL LIMA RES ~ Antibiotic Timeout Antibiotic Ordered?: Yes Subjective Seen and examined the patient at bedside. He reports significant improvement in the shortness of breath but do reports chest pain mild over the pigtail catheter site. Per RN chest tube drain more than 2000 mL of the pleural fluid. Swelling of the legs is improved but still persists. Objective Vital Signs Date Time Temp Pulse Resp B/P (MAP) Pulse Ox O2 Delivery O2 Flow Rate FiO2 08/22/25 12:09 16 08/22/25 08:00 Room Air 0.0 08/22/25 06:25 129/80 (96) 95 08/22/25 06:00 97.4 98 Result Diagram: 08/22/25 0455 08/22/25 0455 General: Awake and alert, no acute distress HEENT: Conjunctiva pink, Sclera clear, Mucus Membranes moist Neck: No masses and tenderness Resp: Unlabored. Decreased breath sounds in the right lung base associated with fine inspiratory crepitations, better than yesterday. No wheezing noted. Cardiovascular: Regular Rate and rhythm, normal S1 and S2 without murmur, rub or gallop Abdomen: Slightly distended, soft and nontender, no organomegaly, no guarding and rigidity, bowel sounds present Neuro: No focal weakness in the upper and lower limb muscles, normal reflexes bilaterally. Cranial nerves II-XII grossly intact Extremities: 1+ lower extremity peripheral edema (chronic) Skin: Warm and Dry Psych: Calm and cooperative at the time of my visit. Coagulation Studies Laboratory Tests Test 08/19/25 02:03 Prothrombin Time 11.4 SECONDS (9.0-12.0) INR International Normalized Ratio 1.1 INR Coagulation Comments Advance Care Planning Advanced Care plannin - 30 Minutes Assessment Assessment This is in 30-year-old male patient with a past medical history of type 1 diabetes mellitus who was transferred from [facility] due to right-sided loculated pleural effusion. Patient had severe shortness of breath, productive cough and chest tightness few weeks ago, was admitted at [facility] on August 02 for pneumonia with parapneumonic effusion. Patient was treated with thoracocentesis, chest tube and IV antibiotics. Chest tube was removed and he was discharged on August 10 with p.o. cefdinir. Patient returned today to the hospital due to persistent shortness of breath with exertion, which is stable since discharge. Patient has been feeling weak but denies fever, chills, nocturnal sweating or productive cough. He also complains of nausea and diarrhea, denies abdominal pain or urinary symptoms. This is the 1st episode of pneumonia and he denies any tobacco or drug history. Plan Plan Sepsis 2/2 bilateral pneumonia Unresolved Right parapneumonic effusion Covering Gram-positive, Gram-negative, atypical, anaerobic bacteria Failed previous therapy Right hydropneumothorax Status post chest tube placement Considering his underlying immunosuppression with type 1 diabetes mellitus and high blood sugars right parapneumonic effusion could be secondary to underlying bacterial infection or possible tuberculosis or possible rheumatoid arthritis and we are currently evaluating with TAWANA, QuantiFERON gold test, CRP, RA factor. Chest CT on yesterday showed right hydropneumothorax/multiloculated right pleural effusion, decreased when compared to the previous CT examination. Patchy right lung airspace consolidation. Left lower lobe consolidation. Medicine lymphadenopathy. We changed the antibiotic from Zithromax to levofloxacin and we will continue both Zosyn and levofloxacin in view of previous admission and failed treatment with cephalosporins and Zithromax. Chest tube drainage is more than 2000 mL of pleural fluid after receiving the tPA and dornase from yesterday evening. Dr. Hernandez is on board Uncontrolled type 1 diabetes mellitus peripheral neuropathy A1c is 10.2 and glucose is 135 On low dose Humalog protocol and Lantus 10 units Acute kidney injury likely 2/2 renal tubular stasis Above likely secondary to sepsis Serum creatinine trended little bit up, in 1.55 Uterine lytes is more towards the renal tubular stasis. Severe protein malnutrition Hypoalbuminemia Pedal edema Serum albumin is 1.4 Total protein is 6.2 On ensure en live p.o. t.i.d. Code Status: Full code DVT prophylaxis: Heparin Analgesia/sedation: Morphine/[place] Line/tube: PIV GI prophylaxis: None Nutrition: 75 g Carb controlled diet Prognosis: Guarded Physical therapy: Ordered Randall Lima Internal medicine resident, PGY 2 Date of Service: Aug 22, 2025 Billing Provider: JUAN MIGUEL DUTTON MD Common Visit Codes: [id number] INP/OBS CARE(HIGH) RANDALL LIMA, ASCENCION Aug 22, 2025 13:18 JUAN MIGUEL DUTTON MD Aug 22, 2025 17:50
[2025-08-22 18:00] VITALS: BP 111/71; PULSE 102; RESP 18; TEMP 98.4; O2SAT 94
--- NOTE | 2025-08-22 20:27 | PROGRESS NOTE ---
Subjective Subjective Seen and examined the patient at bedside. He reports significant improvement in the shortness of breath but do reports chest pain mild over the pigtail catheter site. Per RN chest tube drain more than 2000 mL of the pleural fluid. Swelling of the legs is improved but still persists. Reason for visit: Pulmonology follow-up Reviewed: Care Plan, H&P, Labs, Medications, Radiology Review of Systems Changes from previous H/P or p: No Changes Daily Progress Note Exam Vitals Vital Signs Date Time Temp Pulse Resp B/P (MAP) Pulse Ox O2 Delivery O2 Flow Rate FiO2 08/22/25 17:20 16 08/22/25 10:00 97.5 104 123/66 (85) 94 Room Air 08/22/25 08:00 0.0 Result Diagram: 08/22/25 0455 08/22/25 045 Exam HEENT examination: N/C/AT, PERRLA Neck: Supple with no jugular venous distention no lymphadenopathy. Chest: Symmetric expansion bilaterally Pulmonary: Diminished breath sounds right side Abdomen: Soft nontender Extremities: No cyanosis clubbing edema. Results Coagulation Studies Laboratory Tests Test 08/19/25 02:03 Prothrombin Time 11.4 SECONDS (9.0-12.0) INR International Normalized Ratio 1.1 INR Coagulation Comments VTE VTE Risk Score VTE Risk Score Reference Ranges: Score 0-1 = Low Risk (Aggressive mobilization; early ambulation; no VTE prophylaxis required) Score 2: Moderate Risk (Intermittent/Pneumatic Compression Device OR Lovenox/Heparin/Coumadin) Score 3-4: High Risk (Intermittent/Pneumatic Compression Device AND Lovenox/Heparin/Coumadin) Score > or = 5: Highest Risk (Intermittent/Pneumatic Compression Device AND Lovenox/Heparin/Coumadin) Assessment/Plan Assessment This is in 30-year-old male patient with a past medical history of type 1 diabetes mellitus who was transferred from [facility] due to right-sided loculated pleural effusion. Patient had severe shortness of breath, productive cough and chest tightness few weeks ago, was admitted at [facility] on August 02 for pneumonia with parapneumonic effusion. Patient was treated with thoracocentesis, chest tube and IV antibiotics. Chest tube was removed and he was discharged on August 10 with p.o. cefdinir. Patient returned today to the hospital due to persistent shortness of breath with exertion, which is stable since discharge. Patient has been feeling weak but denies fever, chills, nocturnal sweating or productive cough. He also complains of nausea and diarrhea, denies abdominal pain or urinary symptoms. This is the 1st episode of pneumonia and he denies any tobacco or drug history. Plan This is in 30-year-old male patient with a past medical history of type 1 diabetes mellitus who was transferred from [facility] due to right-sided loculated pleural effusion. Patient had severe shortness of breath, productive cough and chest tightness few weeks ago, was admitted at [facility] on August 02 for pneumonia with parapneumonic effusion. Patient was treated with thoracocentesis, chest tube and IV antibiotics. Chest tube was removed and he was discharged on August 10 with p.o. cefdinir. Patient returned today to the hospital due to persistent shortness of breath with exertion, which is stable since discharge. Patient has been feeling weak but denies fever, chills, nocturnal sweating or productive cough. He also complains of nausea and diarrhea, denies abdominal pain or urinary symptoms. This is the 1st episode of pneumonia and he denies any tobacco or drug history. Plan Status post right chest tube thoracostomy utilizing a 12 Divehi tube via ultrasound. Chest tube output recording may be erroneous. He has drained at least a gallon of pleural fluid. We might be close to the patient's total pleural fluid. We normally make a total six treatments of 15 mg of tPA and 10 mg of dornase using a b.i.d. regimen. I will obtain a CT scan of the chest tomorrow to assess whether further treatments are warranted. Expected Outcome/Goals Expected Outcomes/Goals: maintain stable wt, meet at least 75% of estimated nutrient needs, bowel regularity, optimal skin integrity, BG 80-180 mg/dl ELISEO FABIAN MD Aug 22, 2025 20:27
[2025-08-22 22:00] VITALS: BP 99/59; PULSE 104; RESP 14; TEMP 98.2; O2SAT 95
[2025-08-23] MEDS: mag hydrox/Alum hydrox/simeth 30ml oral suspension PO PRN (04:33)
[2025-08-23 05:30] LABS: MEAN PLATELET VOLUME 7.5 FL (7.4-10.4); RED CELL DISTRIBUTION WIDTH 13.5 % (11.5-14.5)
[2025-08-23 05:48] LABS: CREATININE 1.86 MG/DL (0.60-1.10); TOTAL CARBON DIOXIDE 29.1 MMOL/L (24-32); eCRCL 55 ML/MIN; eGFR 43 ML/MIN
[2025-08-23 06:00] VITALS: BP 115/68; PULSE 93; RESP 18; TEMP 98.3; O2SAT 95
[2025-08-23] MEDS: albumin (Human) 5% 250ml 250 ML IV SCH (08:50)
--- NOTE | 2025-08-23 09:28 | RADIOLOGY REPORT ---
CHEST RADIOGRAPH Indication: CHEST TUBE CHECK Technique: Single frontal view of the chest was obtained Comparison: DI CHEST,SINGLE VIEW on DOS: 08/22/25, CT CT CHEST on DOS: 08/21/25, DI CHEST,SINGLE VIEW on DOS: 08/21/25, DI CHEST,SINGLE VIEW on DOS: 08/20/25, DI CHEST,SINGLE VIEW on DOS: 08/19/25, DI CHEST,SINGLE VIEW on DOS: 08/22/25 FINDINGS: Lines and Tubes: Right pigtail chest tube catheter is visualized. Lungs: Bibasilar opacities. Pleura: Small bilateral pleural effusions. No pneumothorax. Cardiomediastinal contours: Unremarkable Bones: No acute osseous abnormality. IMPRESSION: Small bilateral pleural effusions. Right chest tube is visualized.
[2025-08-23 10:00] VITALS: BP 115/73; PULSE 111; RESP 16; TEMP 97.4; O2SAT 97
--- NOTE | 2025-08-23 10:17 | RADIOLOGY REPORT ---
Procedure: CT CT CHEST Clinical History: Loculated pleural effusion, suspected empyema. Comparison: CT CT CHEST on DOS: 08/21/25 TECHNIQUE: Multidetector CT of the chest was performed from the lung apices to the upper abdomen without the use of intravenous contract. Coronal and sagittal multiplanar reformats were performed. RADIATION DOSE: CTDI volume is 15.7 mGy. Dose-length product is 616.3 mGy*cm The dose indicators for CT are the volume Computed Tomography (CT) Dose Index (CTDIvol) and the Dose Length Product (DLP), and are measured in units of mGy and mGy-cm, respectively. These indicators are not patient dose, but values generated from the CT scanner acquisition factors. The report includes radiation exposure data for exposures received during this examination. Radiation optimization: All CT scans at this facility use at least one of these dose optimization techniques: automated exposure control mA and/or kV adjustment per patient size (includes targeted exams where dose is matched to clinical indication) or iterative reconstruction. FINDINGS: Lower neck: Normal thyroid. Lungs /pleura: There is patchy right upper, middle and lower lobe consolidation which is similar to the prior study. There is a loculated right hydropneumothorax with similar appearance of air and fluid component of the hydropneumothorax as compared to the prior study. Complex appearing fluid noted in the dependent portion of the right lung. There is a pleural catheter with the tip terminating in the posterior medial pleural space. There is a small left pleural effusion. Few scattered nodular opacities throughout the lungs are unchanged. Heart/Vascular Structures: The heart is normal in size. There are no coronary artery calcifications. No pericardial effusion. There is a normal caliber thoracic aorta and main pulmonary artery Lymph Nodes: Mediastinal lymph nodes measuring up to 2.3 cm again noted similar to prior study Musculoskeletal: No acute or suspicious bone lesions. Soft tissues: Body wall anasarca. Upper abdomen: Unremarkable. IMPRESSION: 1. Loculated right hydropneumothorax with similar appearance of air and fluid component of the hydropneumothorax as compared to the prior study. Complex appearing fluid noted in the dependent portion of the right lung. Right pleural catheter unchanged in position. 2. Small left pleural effusion. 3. Patchy right upper, middle and lower lobe consolidation which is similar to the prior study. 4. Mediastinal lymph nodes measuring up to 2.3 cm again noted similar to prior study.
--- NOTE | 2025-08-23 14:54 | PROGRESS NOTE- Residence ---
Progress Note - Resident Providers to CC Resident Creating Document: BRYON JIMENESASCENCION JAQUEZ ~ Antibiotic Timeout Antibiotic Ordered?: Yes Subjective Seen and examined the patient at bedside. He reports improvement with the shortness of breath and chest pain. He almost got 1 gal of pleural fluid with the recent change in color to bright red from serosanguineous fluid. Dr. Hernandez is on board and he consulted Dr. Yi(per RN) Objective Vital Signs Date Time Temp Pulse Resp B/P (MAP) Pulse Ox O2 Delivery O2 Flow Rate FiO2 08/23/25 08:00 Room Air 08/23/25 06:00 98.3 93 18 115/68 (84) 95 08/22/25 08:00 0.0 Result Diagram: 08/23/2550608/23/25 050 General: Awake and alert, no acute distress HEENT: Conjunctiva pink, Sclera clear, Mucus Membranes moist Neck: No masses and tenderness Resp: Unlabored. Decreased breath sounds in the right lung base associated with fine inspiratory crepitations. No wheezing noted. Cardiovascular: Regular Rate and rhythm, normal S1 and S2 without murmur, rub or gallop Abdomen: Slightly distended, soft and nontender, no organomegaly, no guarding and rigidity, bowel sounds present Neuro: No focal weakness in the upper and lower limb muscles, normal reflexes bilaterally. Cranial nerves II-XII grossly intact Extremities: 1+ lower extremity peripheral edema (chronic) Skin: Warm and Dry Psych: Calm and cooperative at the time of my visit. Coagulation Studies Laboratory Tests Test 08/19/25 02:03 Prothrombin Time 11.4 SECONDS (9.0-12.0) INR International Normalized Ratio 1.1 INR Coagulation Comments Advance Care Planning Advanced Care plannin - 30 Minutes Assessment Assessment This is in 30-year-old male patient with a past medical history of type 1 diabetes mellitus who was transferred from [facility] due to right-sided loculated pleural effusion. Patient had severe shortness of breath, productive cough and chest tightness few weeks ago, was admitted at [facility] on August 02 for pneumonia with parapneumonic effusion. Patient was treated with thoracocentesis, chest tube and IV antibiotics. Chest tube was removed and he was discharged on August 10 with p.o. cefdinir. Patient returned today to the hospital due to persistent shortness of breath with exertion, which is stable since discharge. Patient has been feeling weak but denies fever, chills, nocturnal sweating or productive cough. He also complains of nausea and diarrhea, denies abdominal pain or urinary symptoms. This is the 1st episode of pneumonia and he denies any tobacco or drug history. Plan Plan Sepsis 2/2 bilateral pneumonia Unresolved Right pleural effusion likely secondary to parapneumonic effusion versus malignant hemorrhagic effusion Covering Gram-positive, Gram-negative, atypical, anaerobic bacteria Failed previous therapy Right hydropneumothorax Right empyema Status post chest tube thoracostomy Right trapped lung Considering his underlying immunosuppression with type 1 diabetes mellitus and high blood sugars right parapneumonic effusion could be secondary to underlying bacterial infection or possible tuberculosis or possible rheumatoid arthritis or possible lung malignancy and we are currently evaluating with TAWANA, QuantiFERON gold test, CRP, RA factor. Chest CT on yesterday showed right hydropneumothorax/multiloculated right pleural effusion, decreased when compared to the previous CT examination. Patchy right lung airspace consolidation. Left lower lobe consolidation. Medicine lymphadenopathy. We changed the antibiotic from Zithromax to levofloxacin and we will continue both Zosyn and levofloxacin in view of previous admission and failed treatment with cephalosporins and Zithromax. Chest tube drainage is almost more than a 1 gal of pleural fluid. Dr. Hernandez is on board and he consulted Dr. Carey for possible decortication surgery. The pleural fluid seems to be bloody red in color and it could be possibly secondary to underlying right lung malignancy. Lights criteria is at least positive for 1 suggestive of exudative but still we are stuck between parapneumonic effusion versus malignant effusion. Patient may benefit from surgical consultation. Considering his previous admission and treatment for pneumonia and loculated effusion with cephalosporins and Zithromax we changed the antibiotics of Zosyn and levofloxacin to cover Gram-positive, Gram-negative, atypical, anaerobic bacteria. Uncontrolled type 1 diabetes mellitus peripheral neuropathy A1c is 10.2 and glucose is 200s On low dose Humalog protocol and Lantus 10 units Acute kidney injury likely 2/2 renal tubular stasis Above likely secondary to sepsis Serum creatinine trended little bit up, in 1.85 Uterine lytes is more towards the renal tubular stasis. Severe protein malnutrition Hypoalbuminemia Pedal edema Serum albumin is 1.3 Total protein is 6.2 On ensure en live p.o. t.i.d. Ordered human albumin Code Status: Full code DVT prophylaxis: Heparin Analgesia/sedation: Morphine/[place] Line/tube: PIV GI prophylaxis: None Nutrition: 75 g Carb controlled diet Prognosis: Guarded Physical therapy: Ordered Disposition: VATS decortication surgery by Dr. Carey. [facility] Internal medicine resident, PGY 2 Date of Service: Aug 23, 2025 Billing Provider: JUAN MIGUEL DUTTON MD Common Visit Codes: [id number] INP/OBS CARE(HIGH) RANDALL JIMENES, RES Aug 23, 2025 14:54 JUAN MIGUEL DUTTON MD Aug 24, 2025 08:37
--- NOTE | 2025-08-23 16:18 | CONSULTATION REPORT ---
Consult Providers to CC ~ History of Present Illness Reason for Admit\Complaint: right empyema History of Present Illness Mr. Mcfadden is a 30 year old male admitted with loculated right empyema. He has undergone lytic instillation, but has residual loculations with adjacent lung trapping. He reports feeling better overall. We were asked for an evaluation and recommendation. Allergies: Coded Allergies: No Known Allergies (Unverified , 08/18/25) Home Medications Home Medications Active Reported Excedrin Tablet (Acetaminophen/Aspirin/Caffeine) 1 Each Tablet 65 Mg PO Q6H Humalog (Insulin Lispro) 100 Unit/Ml Insuln.pen 0-60 Units SQ DAILY Tresiba Flextouch U-200 (Insulin Degludec) 200 Unit/Ml (3 Ml) Insuln.pen 39 Units SQ HS Past Medical History Past Medical History none Past Surgical History Surgical History Comment EGD with biopsy Past Social History Social History Comment denies etoh, tobacco Exam Vitals: Vital Signs Date Time Temp Pulse Resp B/P (MAP) Pulse Ox O2 Delivery O2 Flow Rate FiO2 08/23/25 10:00 97.4 111 16 115/73 (87) 97 Room Air 08/22/25 08:00 0.0 General: NAD HEENT: PERRLA Neck: supple, no JVD Chest: chest tube in place. diminished breath sounds Cardiovascular: RRR Abdomen: soft, ND/NT Extremities: warm, no edema Central Nervous System: no deficits Musculoskeletal: full ROM Skin: no lesions Diagnostic Data Last Recorded Lab Results: 08/23/25 0507 08/23/25 0507 Diagnostic Data: Laboratory Tests Test 08/19/25 02:03 Prothrombin Time 11.4 SECONDS (9.0-12.0) INR International Normalized Ratio 1.1 INR Coagulation Comments Additional Plan 30 yo male, right loculated pleural effusion. Options discussed including repeat Dornase, repeat drain, observation, or definitive surgical therapy in form of VATS decortication. He has expressed desire to proceed with VATS. We discussed some of the technical aspects of the procedure, including risks and benefits. He understood and had all questions answered to his satisfaction. Will plan for surgery during this admission. ANDREW WELLS MD Aug 23, 2025 16:18
--- NOTE | 2025-08-23 17:09 | PROGRESS NOTE ---
Subjective Subjective Seen and examined the patient at bedside. He reports overall improvement with the shortness of breath and chest pain. Reason for visit: Pulmonology follow-up Reviewed: Care Plan, H&P, Labs, Medications, Radiology Review of Systems Changes from previous H/P or p: No Changes Daily Progress Note Exam Vitals Vital Signs Date Time Temp Pulse Resp B/P (MAP) Pulse Ox O2 Delivery O2 Flow Rate FiO2 08/23/25 10:00 97.4 111 16 115/73 (87) 97 Room Air 08/22/25 08:00 0.0 Result Diagram: 08/23/257 08/23/25 050 Exam HEENT examination: N/C/AT, PERRLA Neck: Supple with no jugular venous distention no lymphadenopathy. Chest: Symmetric expansion bilaterally Pulmonary: Diminished breath sounds right side Abdomen: Soft nontender Extremities: No cyanosis clubbing edema. Results Coagulation Studies Laboratory Tests Test 08/19/25 02:03 Prothrombin Time 11.4 SECONDS (9.0-12.0) INR International Normalized Ratio 1.1 INR Coagulation Comments VTE VTE Risk Score VTE Risk Score Reference Ranges: Score 0-1 = Low Risk (Aggressive mobilization; early ambulation; no VTE prophylaxis required) Score 2: Moderate Risk (Intermittent/Pneumatic Compression Device OR Lovenox/Heparin/Coumadin) Score 3-4: High Risk (Intermittent/Pneumatic Compression Device AND Lovenox/Heparin/Coumadin) Score > or = 5: Highest Risk (Intermittent/Pneumatic Compression Device AND Lovenox/Heparin/Coumadin) Assessment/Plan Assessment This is in 30-year-old male patient with a past medical history of type 1 diabetes mellitus who was transferred from [facility] due to right-sided loculated pleural effusion. Patient had severe shortness of breath, productive cough and chest tightness few weeks ago, was admitted at [facility] on August 02 for pneumonia with parapneumonic effusion. Patient was treated with thoracocentesis, chest tube and IV antibiotics. Chest tube was removed and he was discharged on August 10 with p.o. cefdinir. Patient returned today to the hospital due to persistent shortness of breath with exertion, which is stable since discharge. Patient has been feeling weak but denies fever, chills, nocturnal sweating or productive cough. He also complains of nausea and diarrhea, denies abdominal pain or urinary symptoms. This is the 1st episode of pneumonia and he denies any tobacco or drug history. Plan This is in 30-year-old male patient with a past medical history of type 1 diabetes mellitus who was transferred from [facility] due to right-sided loculated pleural effusion. Patient had severe shortness of breath, productive cough and chest tightness few weeks ago, was admitted at [facility] on August 02 for pneumonia with parapneumonic effusion. Patient was treated with thoracocentesis, chest tube and IV antibiotics. Chest tube was removed and he was discharged on August 10 with p.o. cefdinir. Patient returned today to the hospital due to persistent shortness of breath with exertion, which is stable since discharge. Patient has been feeling weak but denies fever, chills, nocturnal sweating or productive cough. He also complains of nausea and diarrhea, denies abdominal pain or urinary symptoms. This is the 1st episode of pneumonia and he denies any tobacco or drug history. Plans any tobacco or drug history. Status post right chest tube thoracostomy utilizing a 12 [place] tube via ultrasound. He has drained at least a gallon of pleural fluid.Drainage has become more sanguinous We might be close to the patient's total pleural fluid. We normally make a total six treatments of 15 mg of tPA and 10 mg of dornase using a b.i.d. regimen. CT scan of the chest on 08/23/2025 reveals futher improvement and further resolution of loculations.Still with hydropneumothorax .Also has a peel around the lung. Consulted initially Dr Yi who deferred to Dr Uribe who is fabrication and layout craftsman for Cardiothoracic Surgery.Dr Uribe will see patient and render an opinion.Question is whether to pursue conservative management vs surggical decorticatrion. Expected Outcome/Goals Expected Outcomes/Goals: maintain stable wt, meet at least 75% of estimated nutrient needs, ONS acceptance, bowel regularity, optimal skin integrity, BG 80-180 mg/dl ELISEO FABIAN MD Aug 23, 2025 17:09
[2025-08-23] MEDS: lactose-reduced food (Ensure High Protein) 237ml bottle PO SCH (18:00)
[2025-08-23 18:30] VITALS: BP 111/55; PULSE 113; RESP 16; TEMP 98.1; O2SAT 94
[2025-08-23] MEDS ORDERED: lactose-reduced food (Ensure Enlive) - 237ml bottle PO SCH (20:00)
[2025-08-23 22:00] VITALS: BP 121/73; PULSE 121; RESP 16; TEMP 99.8; O2SAT 94
[2025-08-24] VITALS (9 sets, daily range): BP systolic 116–138; BP diastolic 67–83; PULSE 108–118; RESP 15–24; TEMP 97.5–99.6; O2SAT 95–98
[2025-08-24 05:49] LABS: MEAN PLATELET VOLUME 7.7 FL (7.4-10.4); RED CELL DISTRIBUTION WIDTH 13.4 % (11.5-14.5)
[2025-08-24 06:11] LABS: CREATININE 2.44 MG/DL (0.60-1.10); TOTAL CARBON DIOXIDE 28.2 MMOL/L (24-32); eCRCL 42 ML/MIN; eGFR 32 ML/MIN
--- NOTE | 2025-08-24 07:37 | RADIOLOGY REPORT ---
CHEST RADIOGRAPH Indication: CHEST TUBE CHECK Technique: Single frontal view of the chest was obtained Comparison: CT CT CHEST on DOS: 08/23/25, DI CHEST,SINGLE VIEW on DOS: 08/23/25, DI CHEST,SINGLE VIEW on DOS: 08/22/25 FINDINGS: Lines and Tubes: Right pigtail catheter is unchanged. Lungs: Bibasilar airspace disease. Pleura: There are bilateral pleural effusions. No pneumothorax. Cardiomediastinal contours: Cardiomegaly. Bones: No acute osseous abnormality. IMPRESSION: 1. Bibasilar airspace disease and bilateral pleural effusions similar to prior study. Right pigtail catheter is unchanged.
[2025-08-24 08:38] LABS: MEAN PLATELET VOLUME 7.6 FL (7.4-10.4); RED CELL DISTRIBUTION WIDTH 13.5 % (11.5-14.5)
[2025-08-24 09:02] LABS: CREATININE 2.35 MG/DL (0.60-1.10); TOTAL CARBON DIOXIDE 26.9 MMOL/L (24-32); eCRCL 43 ML/MIN; eGFR 33 ML/MIN
--- NOTE | 2025-08-24 09:23 | PROGRESS NOTE ---
Progress Note CV Providers to CC ~ Antibiotics Ordered?: No Subjective Subjective Pt complains of abdominal discomfort and chest soreness. He had a large drop in his H/H overnight. Rec' Dornase via chest tube. 1 unit PRBC's ordered. Objective Vitals Vital Signs Date Time Temp Pulse Resp B/P (MAP) Pulse Ox O2 Delivery O2 Flow Rate FiO2 08/24/25 06:00 97.5 117 15 116/83 (94) 95 Room Air 08/23/25 20:00 0.0 Lab Results: 08/24/25 0822 08/24/25 08 Objective Lungs - diminished at bases R > L Heart - RRR, ST Abd - mild diffuse tenderness, + BS Extr - OK Coagulation Studies Laboratory Tests Test 08/19/25 02:03 Prothrombin Time 11.4 SECONDS (9.0-12.0) INR International Normalized Ratio 1.1 INR Coagulation Comments Cardiac Rhythm: Sinus Rhythm Problem\Assessment\Plan Additional Plan Hgb 5.6 Transfuse. Keep 2 units ahead NPO after MN for R VATS, decort by Dr. Carey, planned for tomorrow. Supervising Co-signing Provider: IDANIA Dixon Aug 24, 2025 09:23
[2025-08-24] MEDS: MESSAGE TO PHARMACY IJ ONE (09:25)
[2025-08-24] MEDS: MESSAGE TO NURSING PO ONE (09:25)
[2025-08-24] MEDS: normal saline 1000ml 1,000 ML IV SCH (10:07)
[2025-08-24] MEDS: normal saline 1000ml 1,000 ML IV ONE (10:10)
--- NOTE | 2025-08-24 10:19 | ELECTROCARDIOGRAPH REPORT ---
[facility] Test Date: 2025-08-24 Test Time: 10:16:01 Pat Name: DONNA OBRIEN Department: [facility] Patient ID: [facility]-[id number] Room: [place] [address] Gender: M Academic Administrator: : 1995 Requested By: IDANIA HARRIS Order Number: [id number] Reading MD: Dr. Kami Garibay Measurements Intervals [place] Rate: 123 P: 56 MA: 110 QRS: 61 QRSD: 78 T: 0 QT: 284 QTc: 407 Interpretive Statements Sinus tachycardia Borderline repolarization abnormality Non sp changes Electronically Signed On 08-28-2025 7:02:[address] Kami Garibay Please click the below link to view image of tracing.
[2025-08-24 10:43] LABS: APTT 35 SECONDS (22-32); INR 1.1 INR
--- NOTE | 2025-08-24 11:41 | ELECTROCARDIOGRAPH REPORT ---
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 Kami Garibay Measurements Intervals [place] Rate: 117 P: 43 IA: 110 QRS: 38 QRSD: 77 T: 0 QT: 317 QTc: 443 Interpretive Statements Sinus tachycardia Borderline repolarization abnormality Non sp ST T Wave changes Electronically Signed On 08-28-2025 7:04:[address] Kami Garibay Please click the below link to view image of tracing.
--- NOTE | 2025-08-24 12:20 | RADIOLOGY REPORT ---
CHEST RADIOGRAPH Indication: rapid response Technique: DI CHEST,SINGLE VIEW COMPARISON: 08/24/2025 FINDINGS: Right pigtail catheter tip projects over the right pulmonary hilar region. The cardiac silhouette is enlarged. The lungs demonstrate bilateral patchy airspace opacities. The pulmonary vasculature is prominent. Moderate right and small to moderate left pleural effusions, similar to. There is no pneumothorax. IMPRESSION: As above
--- NOTE | 2025-08-24 12:44 | CONSULTATION REPORT - RESIDENT ---
Consult Providers to CC Resident Creating Document: MARCELL VILLASEÑOR RES History of Present Illness Reason for Admit\Complaint: NAA History of Present Illness This is a 30-year-old male with past medical history of type 1 diabetes mellitus(since age 10), transferred from [facility] due to right-sided loculated pleural effusion. Patient was previously admitted at [facility] on August 02 for pneumonia with parapneumonic effusion, was treated with thoracocentesis, chest tube and IV antibiotics, chest tube was removed and he was discharged on August 10. This is the 1st episode of pneumonia, no history of tobacco use or drugs. Chest CT done during this visit showed right hydropneumothorax, multiloculated right pleural effusion. Currently on antibiotics levofloxacin and Zosyn, chest tube was placed on 08/20/[address] Hernandez, drained almost more than a gal of pleural fluid. Initially the fluid was serosanguineous later became bright red with sudden drop in the hemoglobin from 9 to 5.5. 1 unit of blood has been ordered. Dr. Carey was consulted, patient is having decortication surgery tomorrow. During his stay in the hospital the patient developed NAA, creatinine 2.35 from 1.73 at the time of admission, BUN 21, BUN/creatinine 8.9, GFR 33, sodium 130, potassium 4.6, bicarb of 26.9. Urine analysis shows a urine protein of > 300, moderate occult blood. He uses exedrin for migraines. N0o recent contrast exposure. No history of kidney stones. No Known family history of kidney stones. Allergies: Coded Allergies: No Known Allergies (Unverified , 08/18/25) Home Medications Home Medications Active Reported Excedrin Tablet (Acetaminophen/Aspirin/Caffeine) 1 Each Tablet 65 Mg PO Q6H Humalog (Insulin Lispro) 100 Unit/Ml Insuln.pen 0-60 Units SQ DAILY Tresiba Flextouch U-200 (Insulin Degludec) 200 Unit/Ml (3 Ml) Insuln.pen 39 Units SQ HS Past Medical History Past Medical History Diabetes type 1, peripheral neuropathies Past Surgical History Surgical History Comment None Past Social History Social History Comment As stated above in the HPI, otherwise all systems are reviewed and negative. Exam Vitals: Vital Signs Date Time Temp Pulse Resp B/P (MAP) Pulse Ox O2 Delivery O2 Flow Rate FiO2 08/24/25 07:00 Room Air 0.0 08/24/25 06:00 97.5 117 15 116/83 (94) 95 General: General: Awake and alert, no acute distress HEENT: Conjunctiva pink, Sclera clear, Mucus Membranes moist Neck: No masses and tenderness Resp: Unlabored. Decreased breath sounds in the right lung base associated with fine inspiratory crepitations. No wheezing noted. Cardiovascular: Regular Rate and rhythm, normal S1 and S2 without murmur, rub or gallop Abdomen: Slightly distended, soft and nontender, no organomegaly, no guarding and rigidity, bowel sounds present Neuro: No focal weakness in the upper and lower limb muscles, normal reflexes bilaterally. Cranial nerves II-XII grossly intact Extremities: 1+ lower extremity peripheral edema (chronic) Skin: Warm and Dry Psych: Calm and cooperative at the time of my visit. Diagnostic Data Last Recorded Lab Results: 08/24/2582108/24/25821 Diagnostic Data: Laboratory Tests Test 08/24/25 09:47 Prothrombin Time 11.5 SECONDS (9.0-12.0) INR International Normalized Ratio 1.1 INR Activated Partial Thromboplast Time 35 SECONDS (22-32) H Coagulation Comments Additional Plan Assesment This is a 30-year-old male with past medical history of type 1 diabetes mellitus, transferred from [facility] due to right-sided loculated pleural effusion. Patient was previously admitted at [facility] on August 02 for pneumonia with parapneumonic effusion, was treated with thoracocentesis, chest tube and IV antibiotics, chest tube was removed and he was discharged on August 10. This is the 1st episode of pneumonia, no history of tobacco use or drugs. Chest CT done during this visit showed right hydropneumothorax, multiloculated right pleural effusion. Currently on antibiotics levofloxacin and Zosyn, chest tube was placed on 08/20/[address] Hernandez, drained almost more than a gal of pleural fluid. Initially the fluid was serosanguineous later became bright red with sudden drop in the hemoglobin from 9 to 5.5. 1 unit of blood has been ordered. Dr. Carey was consulted, patient is having decortication surgery tomorrow. During his stay in the hospital the patient developed NAA, creatinine 2.35 from 1.73 at the time of admission, BUN 21, BUN/creatinine 8.9, GFR 33, sodium 130, potassium 4.6, bicarb of 26.9. Urine analysis shows a urine protein of > 300, moderate occult blood. He uses exedrin for migraines. N0o recent contrast exposure. No history of kidney stones. No Known family history of kidney stones. Plan NAA Proteinuria Likely secondary to decreased perfusion to kidneys because of acute blood loss Patient has been diabetic since age 10, dear could be some underlying chronic kidney disease. Baseline kidney function is not known. creatinine 2.35 from 1.73 at the time of admission, BUN 21, BUN/creatinine 8.9, GFR 33 Urine analysis shows a urine protein of > 300, moderate occult blood-this proteinuria and hematuria can also be seen in NAA, if the persist after the resolution of acute conditions further evaluation for nephrotic/nephritic we will be planned. Urine electrolytes showed, Bal 62, FeNA-2% Plan Follow up with daily urine electrolytes Follow up with HIV, HBsAg Follow up with renal ultrasound. Expecting the kidney function to improve with blood transfusion Started on IV fluids LR@ 100 mL/hour Avoid nephrotoxin agents, avoid [place], morphine for pain management Patient is currently on Protonix drip for possible GI bleed Renal dosing of medications recommended, levofloxacin 750 mg q.48h or 500 mg initially followed by 250 mg Q 24 Zosyn 4.5 q.12 Strict I&Os Renal diet Acute blood loss anemia Likely secondary to hemorrhagic effusion in the chest tube Hemoglobin dropped from 9-5.5 Received 1 unit of blood Was started on Protonix drip for likely GI bleed. Continue to monitor H and H Transfuse if HGB< seven. Sepsis secondary to bilateral pneumonia with unresolving right pleural effusion which evolved into hemorrhagic effusion Pleural effusion secondary to parapneumonic effusion vs malignancy s/p chest tube thoracotomy Pleural effusion was initially yellow color, changed to bright red. Lights criteria positive TAWANA, TB QuantiFERON gold test negative Chest CT showed hydropneumothorax with a multiloculated right pleural effusion. On levofloxacin and Zosyn, recommended renal dosing. Scheduled for R VATS, decortication by Dr. Carey Uncontrolled type 1 diabetes mellitus peripheral neuropathy A1c is 10.2 and glucose is 200s On low dose Humalog protocol and Lantus 10 units Severe protein malnutrition Hypoalbuminemia Pedal edema Serum albumin is 1.3 Total protein is 6.2 On ensure en live p.o. t.i.dGuero Villaseñor M.D PGY2 Nephrology Resident. Date of Service: Aug 24, 2025 Billing Provider: DIANA TANNER III, PRAVAHIKA, RES Aug 24, 2025 12:44
[2025-08-24] MEDS: piperacillin/tazo 4.5gm/100ml 100 ML IV SCH (13:35)
[2025-08-24 15:11] LABS: MEAN PLATELET VOLUME 7.3 FL (7.4-10.4); RED CELL DISTRIBUTION WIDTH 13.4 % (11.5-14.5)
[2025-08-24] MEDS: ringers solution, lacted 1,000 ML IV ONE (16:13)
[2025-08-24] MEDS: pantoprazole 40MG/NS 100ML BAG 100 ML IV SCH (16:14)
--- NOTE | 2025-08-24 17:11 | VASCULAR REPORT ---
Technique: Real-time ultrasound imaging, with grayscale imaging of the bilateral great saphenous veins. Indication: Preoperative CABG measurements Comparison: None Findings: Right great saphenous vein above the knee ranges from 3.3 to 4.2 mm. Below the knee ranges from 1.9 to 2.1 The left great saphenous vein ranges from 3.0 ro 3.5 Above the knee. The left great saphenous vein below the knee ranges from 1.8 to 2.0 mm. Bilateral lower extremity soft tissue edema. Impression: Measurements as above
--- NOTE | 2025-08-24 17:18 | PROGRESS NOTE- Residence ---
Progress Note - Resident Providers to CC Resident Creating Document: RANDALL JIMENES RES ~ Antibiotic Timeout Antibiotic Ordered?: Yes Subjective Seen and examined the patient at bedside. Patient is deteriorated on today and still has chest pain and he is little bit in altered sensorium. Hemoglobin was dropped to 5.5 over the night from 9 from yesterday and patient chest tube was drained with more than 4-5 L of the pleural fluid mostly associated with blood. Kidney numbers are going in the bad direction. Patient is going to the OR on tomorrow for VATS and decortication surgery. Objective Vital Signs Date Time Temp Pulse Resp B/P (MAP) Pulse Ox O2 Delivery O2 Flow Rate FiO2 08/24/25 16:13 17 08/24/25 15:28 118 98 Room Air* 0 21 08/24/25 14:59 99.6 133/72 Result Diagram: 08/24/25 1448 08/24/25 0822 General: Awake and alert, in mild distress. Patient is with pallor on today. HEENT: Conjunctiva pink, Sclera clear, Mucus Membranes moist Neck: No masses and tenderness Resp: Unlabored. Decreased breath sounds in the right lung base associated with fine inspiratory crepitations. No wheezing noted. Cardiovascular: Regular Rate and rhythm, normal S1 and S2 without murmur, rub or gallop Abdomen: Slightly distended, soft and nontender, no organomegaly, no guarding and rigidity, bowel sounds present Neuro: No focal weakness in the upper and lower limb muscles, normal reflexes bilaterally. Cranial nerves II-XII grossly intact Extremities: 1+ lower extremity peripheral edema (chronic) Skin: Warm and Dry Psych: Calm and cooperative at the time of my visit. Coagulation Studies Laboratory Tests Test 08/24/25 09:47 Prothrombin Time 11.5 SECONDS (9.0-12.0) INR International Normalized Ratio 1.1 INR Activated Partial Thromboplast Time 35 SECONDS (22-32) H Coagulation Comments Advance Care Planning Advanced Care plannin - 30 Minutes Assessment Assessment This is in 30-year-old male patient with a past medical history of type 1 diabetes mellitus who was transferred from [facility] due to right-sided loculated pleural effusion. Patient had severe shortness of breath, productive cough and chest tightness few weeks ago, was admitted at [facility] on August 02 for pneumonia with parapneumonic effusion. Patient was treated with thoracocentesis, chest tube and IV antibiotics. Chest tube was removed and he was discharged on August 10 with p.o. cefdinir. Patient returned today to the hospital due to persistent shortness of breath with exertion, which is stable since discharge. Patient has been feeling weak but denies fever, chills, nocturnal sweating or productive cough. He also complains of nausea and diarrhea, denies abdominal pain or urinary symptoms. This is the 1st episode of pneumonia and he denies any tobacco or drug history. Plan Plan Sepsis 2/2 bilateral pneumonia Unresolved Right pleural effusion likely secondary to parapneumonic effusion possible right hemothorax Covering Gram-positive, Gram-negative, atypical, anaerobic bacteria Failed previous therapy Right hydropneumothorax Right empyema Status post chest tube thoracostomy Right trapped lung Considering his underlying immunosuppression with type 1 diabetes mellitus and high blood sugars right parapneumonic effusion could be secondary to underlying bacterial infection or possible tuberculosis or possible rheumatoid arthritis or possible lung malignancy and we are currently evaluating with TA[place]NA, QuantiFERON gold test, CRP, RA factor. Chest CT on yesterday showed right hydropneumothorax/multiloculated right pleural effusion, decreased when compared to the previous CT examination. Patchy right lung airspace consolidation. Left lower lobe consolidation. Medicine lymphadenopathy. We changed the antibiotic from Zithromax to levofloxacin and we will continue both Zosyn and levofloxacin in view of previous admission and failed treatment with cephalosporins and Zithromax. Chest tube drainage is almost more than a 1 gal of pleural fluid. Dr. Hernandez is on board and he consulted Dr. Carey for possible decortication surgery. The pleural fluid seems to be bloody red in color and it could be possibly secondary to underlying right lung malignancy. Lights criteria is at least positive for 1 suggestive of exudative but still we are stuck between parapneumonic effusion versus malignant effusion. Patient may benefit from surgical consultation. Considering his previous admission and treatment for pneumonia and loculated effusion with cephalosporins and Zithromax we changed the antibiotics of Zosyn and levofloxacin to cover Gram-positive, Gram-negative, atypical, anaerobic bacteria. TAWANA is negative and QuantiFERON is negative. We consulted ID and toy assembler team. Vitals are stable and continuing the antibiotics of Zosyn and levofloxacin. Uncontrolled type 1 diabetes mellitus peripheral neuropathy A1c is 10.2 and glucose is in 300s On medium dose Humalog protocol and Lantus 10 units. Acute kidney injury likely 2/2 renal tubular stasis Above likely secondary to sepsis Likely secondary to decreased perfusion to kidneys because of acute blood loss Patient has been diabetic since age 10, dear could be some underlying chronic kidney disease. Baseline kidney function is not known. creatinine 2.35 from 1.73 at the time of admission, BUN 21, BUN/creatinine 8.9, GFR 33 Urine analysis shows a urine protein of > 300, moderate occult blood-this proteinuria and hematuria can also be seen in NAA, if the persist after the resolution of acute conditions further evaluation for nephrotic/nephritic we will be planned. Urine electrolytes showed, Bal 62, FeNA-2% Follow up with daily urine electrolytes Follow up with HIV, HBsAg Follow up with renal ultrasound. Expecting the kidney function to improve with blood transfusion Started on IV fluids LR@ 100 mL/hour Avoid nephrotoxin agents, avoid [place], morphine for pain management Patient is currently on Protonix drip for possible GI bleed Renal dosing of medications recommended, levofloxacin 750 mg q.48h or 500 mg initially followed by 250 mg Q 24 Zosyn 4.5 q.12 H Strict I&Os Renal diet Severe protein malnutrition Hypoalbuminemia Pedal edema Serum albumin is 1.3 Total protein is 6.2 On ensure en live p.o. t.i.d. Ordered human albumin Normocytic normochromic Anemia secondary to acute blood loss Secondary to Possible right hemothorax versus upper GI bleed Stool guaiac is negative Monitor H&H q.6 H Transfuse if hemoglobin is less than 6 Transfusion orders were placed On Protonix drip. Code Status: Full code DVT prophylaxis: SCDs Analgesia/sedation: Percocet Line/tube: PIV GI prophylaxis: None Nutrition: 75 g Carb controlled diet Prognosis: Guarded Physical therapy: Ordered We spent more than 35 minutes of critical care time with the patient. Disposition: VATS decortication surgery by Dr. Carey on tomorrow. Monitor H&H and continue the blood transfusion. if patient is unstable to be in PCU and if the blood pressures are not maintaining well more than 65, we will to ICU Randall Jimenes Internal medicine resident, PGY 2 Date of Service: Aug 24, 2025 Billing Provider: MAGO,GRACIERANDALL BRITTON MD, RES Aug 24, 2025 17:18
--- NOTE | 2025-08-24 17:21 | VASCULAR REPORT ---
Indication: Preoperative CABG Technique: Real-time ultrasound images of the neck vessels with samson-scale, color and wave Doppler were obtained. Comparison: None Findings: Mild bilateral atherosclerotic plaque The following peak systolic velocities were recorded in cm/sec: Right internal carotid: 116 Right common carotid: 133 Right external carotid: 121 Right internal/common carotid ratio: 1 Left internal carotid: 137 distal left ICA Left common carotid: 120 Left external carotid: 123 Left internal/common carotid ratio: 1.2 Right vertebral artery: Patent with normal antegrade direction of flow. Left vertebral artery: Patent with normal antegrade direction of flow. Impression: Possible 50-69% stenosis of the left internal carotid artery by velocity criteria. Recommend CT angiogram neck to evaluate.
[2025-08-24] MEDS: ringers solution, lacted 1,000 ML IV SCH (18:07)
[2025-08-24 18:35] LABS: HIV ANTIBODY 1&2 RAPID NON-REACTIVE (Neg)
[2025-08-24 20:13] LABS: MEAN PLATELET VOLUME 7.1 FL (7.4-10.4); RED CELL DISTRIBUTION WIDTH 15.2 % (11.5-14.5)
[2025-08-24] MEDS: mupirocin 2% nasal ointment 1gm UD NS SCH (20:25)
[2025-08-24] MEDS: insulin glargine (Lantus) pen - multi-dose SQ SCH (20:53)
[2025-08-24] MEDS: INSULIN LISPRO 100 UNIT/ML INSULN.PEN MULTI-DOSE SQ SCH (20:53)
[2025-08-25] VITALS (40 sets, daily range): BP systolic 111–158; BP diastolic 56–136; PULSE 92–108; RESP 10–19; TEMP 96.8–98.2; O2SAT 94–99
[2025-08-25 02:16] LABS: MEAN PLATELET VOLUME 7.0 FL (7.4-10.4); RED CELL DISTRIBUTION WIDTH 15.6 % (11.5-14.5)
[2025-08-25 02:32] LABS: CREATININE 2.25 MG/DL (0.60-1.10); TOTAL CARBON DIOXIDE 29.1 MMOL/L (24-32); eCRCL 45 ML/MIN; eGFR 35 ML/MIN
[2025-08-25] MEDS: ceFAZolin 2gm/dext,iso 50mL 50 ML IV ONE (05:30)
[2025-08-25] MEDS ORDERED: BUPIVAcaine 0.25% w/Epi /PF 30ml vial ONE (06:58)
[2025-08-25] MEDS ORDERED: BUPIVAcaine/PF 2.5mg/ml (0.25%) 10ml vial ONE (06:59)
[2025-08-25] MEDS ORDERED: MIDAZolam 1 MG/ML 5ML VIAL ONE (07:38)
[2025-08-25] MEDS ORDERED: fentaNYL /PF 50mcg/ml 5ml ampule ONE (07:38)
[2025-08-25] MEDS ORDERED: LIDOcaine 2% (20mg/ml) 5ml vial ONE (07:39)
[2025-08-25] MEDS ORDERED: propofol inj 20 ML IV ONE (07:39)
[2025-08-25 08:57] LABS: MEAN PLATELET VOLUME 7.4 FL (7.4-10.4); RED CELL DISTRIBUTION WIDTH 15.1 % (11.5-14.5)
[2025-08-25] MEDS ORDERED: acetaminophen 1,000mg/100ml IV 100 ML IV ONE (09:31)
[2025-08-25] MEDS ORDERED: ondansetron/PF 4mg/2ml inj ONE (09:32)
[2025-08-25] MEDS: BUPIVAcaine/PF 2.5mg/ml (0.25%) 10ml vial IJ ONE (09:34)
[2025-08-25] MEDS ORDERED: rocuronium 10mg/ml inj IV ONE (09:38)
[2025-08-25] MEDS ORDERED: albumin (Human) 5% 250ml 250 ML IV ONE ×3 (09:49)
[2025-08-25] MEDS ORDERED: labetalol 20mg/4ml (5mg/ml) syringe IV PRN (10:00)
[2025-08-25] MEDS ORDERED: hydrALAZINE 20mg/ml inj. IV PRN (10:00)
[2025-08-25] MEDS ORDERED: fentaNYL/PF 50MCG/1 ML 2ML syringe IV PRN (10:00)
[2025-08-25] MEDS ORDERED: morphine 4 MG/ML inj SYRINge IV PRN ×2 (10:00)
--- NOTE | 2025-08-25 12:07 | PROGRESS NOTE- Residence ---
Progress Note - Resident Providers to CC Resident Creating Document: MARCELL VILLASEÑOR RES ~ Antibiotic Timeout Antibiotic Ordered?: Yes MRSA Education MRSA Education Provided to pt: Yes Subjective Patient was taken to decortication and VATS, patient was not in the room today. But the kidney function is slowly getting better. Objective Vital Signs Date Time Temp Pulse Resp B/P (MAP) Pulse Ox O2 Delivery O2 Flow Rate FiO2 08/25/25 08:15 99.0 102 17 95 08/25/25 07:48 Room Air 08/25/25 07:00 120/75 08/24/25 20:00 0.0 21 Result Diagram: 08/25/25 0809 08/25/25 0200 General: Awake and alert, appear pale HEENT: Conjunctiva pale, Sclera clear, Mucus Membranes moist Neck: No masses and tenderness Resp: Unlabored. Decreased breath sounds in the right lung base associated with fine inspiratory crepitations. No wheezing noted. Chest tube on the right side. Cardiovascular: Regular Rate and rhythm, normal S1 and S2 without murmur, rub or gallop Abdomen: Slightly distended, soft and nontender, no organomegaly, no guarding and rigidity, bowel sounds present Neuro: No focal weakness in the upper and lower limb muscles, normal reflexes bilaterally. Cranial nerves II-XII grossly intact Extremities: 1+ lower extremity peripheral edema (chronic) Skin: Warm and Dry Psych: Calm and cooperative at the time of my visit. Coagulation Studies Laboratory Tests Test 08/24/25 09:47 Prothrombin Time 11.5 SECONDS (9.0-12.0) INR International Normalized Ratio 1.1 INR Activated Partial Thromboplast Time 35 SECONDS (22-32) H Coagulation Comments Assessment Assessment Assesment This is a 30-year-old male with past medical history of type 1 diabetes mellitus, transferred from [place] due to right-sided loculated pleural effusion. Patient was previously admitted at [place] on August 02 for pneumonia with parapneumonic effusion, was treated with thoracocentesis, chest tube and IV antibiotics, chest tube was removed and he was discharged on August 10. This is the 1st episode of pneumonia, no history of tobacco use or drugs. He presented again with worsening shortness of breadth. Chest CT done during this visit showed right hydropneumothorax, multiloculated right pleural effusion. Currently on antibiotics levofloxacin and Zosyn. Chest tube was placed on 08/20/[address] Hernandez, drained almost more than a gal of pleural fluid. Initially the fluid was serosanguineous later became bright red with sudden drop in the hemoglobin from 9 to 5.5. 1 unit of PRBC was transfused. Dr. Carey was consulted, patient is getting VATS and decortication surgery today. During his stay in the hospital the patient developed NAA, creatinine 2.35 from 1.73 at the time of admission, BUN 21, BUN/creatinine 8.9, GFR 33, sodium 130, potassium 4.6, bicarb of 26.9. Urine analysis shows a urine protein of > 300, moderate occult blood. He uses exedrin for migraines. No recent contrast exposure. No history of kidney stones. No Known family history of kidney disease. His kidney function is slowly getting better with the IV fluids. Plan NAA/ATN Proteinuria Likely secondary to decreased perfusion to kidneys because of acute blood loss Patient has been diabetic since age 10, there could be some underlying chronic kidney disease. Baseline kidney function is not known. creatinine 2.35 from 1.73 at the time of admission. Today creatinine function improved to 2.25, BUN 20, GFR 35, Urine analysis shows a urine protein of > 300, moderate occult blood-this proteinuria and hematuria can also be seen in NAA, if the persist after the resolution of acute conditions further evaluation for nephrotic/nephritic will be planned. Urine electrolytes showed, Bal 62, FeNA-2% Plan Follow up with daily urine electrolytes Pending HIV, HBsAg Follow up with renal ultrasound. Started on IV fluids LR@ 100 mL/hour Avoid nephrotoxin agents, avoid [place], morphine for pain management Renal dosing of medications recommended, levofloxacin 750 mg q.48h or 500 mg initially followed by 250 mg Q 24 Zosyn 4.5 q.12 Strict I&Os Renal diet Acute blood loss anemia Likely secondary to hemorrhagic effusion in the chest tube Hemoglobin dropped from 9-5.5, today improved to 6.8 Received 1 unit of blood Continue to monitor H and H Transfuse if HGB< 7. Sepsis secondary to bilateral pneumonia with unresolving right pleural effusion which evolved into hemorrhagic effusion Pleural effusion secondary to parapneumonic effusion vs malignancy s/p chest tube thoracotomy Pleural effusion was initially yellow color, changed to bright red. Lights criteria positive [place]NA, TB QuantiFERON gold test negative Chest CT showed hydropneumothorax with a multiloculated right pleural effusion. On levofloxacin and Zosyn, recommended renal dosing. R VATS, decortication by Dr. Carey today. Uncontrolled type 1 diabetes mellitus peripheral neuropathy A1c is 10.2 and glucose is 200s On low dose Humalog protocol and Lantus 10 units Severe protein malnutrition Hypoalbuminemia Pedal edema Serum albumin is 1.4 Total protein is 5.0 On ensure en live p.o. t.i.dGuero Villaseñor M.D PGY2 Nephrology Resident. Plan Plan Date of Service: Aug 25, 2025 Billing Provider: DIANA TANNER III, PRAVAHIKA, RES Aug 25, 2025 12:07
--- NOTE | 2025-08-25 12:08 | POSTOPERATIVE RECORDS ---
Postoperative Records Providers to CC ~ Date of Procedure: Aug 25, 2025 Problems: (1) Loculated pleural effusion (2) Empyema Post-Operative Diagnosis SAME as PRE-Op Procedure Performed R VATS, decortication, removal of pigtail drain, placement of chest tubes. Surgeon: Jone Carey Registered Pharmacist Jesús Alejandre Anesthesiologist: Harsh Balderrama Type of Anesthesia: General Findings: Blood, fluid, adhesions, pleural peel. Complications None. Estimated Blood Loss: 1250 Specimen Removed: R pleural fluid for Cx, gram stain, fungal. Counts reported as correct: Yes IDANIA ALEJANDRE Aug 25, 2025 12:08
[2025-08-25] MEDS ORDERED: HYDROcodone/acetaminophen 10/325mg tab PO PRN (12:10)
[2025-08-25] MEDS: ondansetron/PF 4mg/2ml inj IV PRN (12:15)
[2025-08-25] MEDS: fentaNYL/PF 50MCG/1 ML 2ML syringe IV PRN (12:20)
[2025-08-25] MEDS: aprepitant 40mg capsule PO STA (12:28)
[2025-08-25] MEDS: scopolamine 1MG/72H patch 1 PATCH PATCH.TD.3 TD STA (12:34)
[2025-08-25 12:35] LABS: ISTAT ANION GAP 12.0 (8-12); ISTAT BUN 17.0 mg/dL (7-18); ISTAT CL 96.0 mmol/L (99-107); ISTAT CREATININE 1.9 mg/dL (0.8-1.3); ISTAT GLUCOSE 310.0 mg/dL (70-104); ISTAT HGB 6.5 g/dl (14.0-17.9); ISTAT Hct 19.0 %PCV (42-52); ISTAT IONIZED CALCIUM 1.15 mmol/L (1.03-1.32); ISTAT K 4.2 mmol/L (3.5-5.1); ISTAT NA 130.0 mmol/L (135-145); ISTAT TOTAL CO2 22.0 mmol/L (24-32); ISTAT eGFR 42.0 ML/MIN; POC BUN/CREATININE RATIO 8.9 (5.4-32.0)
[2025-08-25 12:44] LABS: ABG BASE EXCESS -2.4 mmol/L (-2.0-3.0); ABG HCO3 22.8 mmol/L (21.0-28.0); ABG OXYGEN SATURATION 95.3 % (94.0-98.0); ABG PCO2 (T) 41.1 mmHg (35.0-48.0); ABG PH (T) 7.362 (7.350-7.450); ABG PO2 (T) 82.6 mmHg (83.0-108.0); FCOHb 2.3 % (0.5-1.5); FHHb 4.6 % (0.0-5.0); FIO2 32.0 mmHg/%; FLOW 2 L/min; FMetHb 0.3 % (0.0-1.5); FO2Hb 92.8 % (94.0-98.0); MODE NASAL CANNULA; PATIENT TEMPERATURE 37.0; TOTAL HEMOGLOBIN 7.2 G/dl (13.5-17.5)
--- NOTE | 2025-08-25 12:44 | RADIOLOGY REPORT ---
EXAM: DI CHEST,SINGLE VIEW HISTORY: POST OP COMPARISON: DI CHEST,SINGLE VIEW on DOS: 08/24/25, DI CHEST,SINGLE VIEW on DOS: 08/24/25, DI CHEST,SINGLE VIEW on DOS: 08/23/25, DI CHEST,SINGLE VIEW on DOS: 08/22/25, DI CHEST,SINGLE VIEW on DOS: 08/21/25 TECHNIQUE: Portable upright AP view of the chest was performed. FINDINGS: There has been interval removal of the previously identified small bore pigtail right pleural percutaneous thoracostomy tube. There has been interval placement of 3 large bore right-sided chest tubes. There are patchy opacities throughout the right lung. There are patchy opacities in the left lung base. No pneumothorax is seen bilaterally. The heart is borderline enlarged. IMPRESSION: 1. Interval placement of 3 large bore right sided thoracostomy tubes and interval removal of the previously identified small bore right thoracostomy tube. 2. Infiltrates throughout the right lung and in the left lung base which may be due to pneumonia, atelectasis, hemorrhage, and/or loculated effusions.
[2025-08-25] MEDS: ringers solution, lacted 1,000 ML IV SCH (14:38)
--- NOTE | 2025-08-25 15:17 | CONSULTATION REPORT - RESIDENT ---
Consult Providers to CC Resident Creating Document: OBIJUDI GARCIAA, RES CC: COLEMAN IZQUIERDO DO History of Present Illness Reason for Admit\Complaint: Shortness of breaths and right-sided pleural effusion History of Present Illness A 30-year-old male with PMH of type 1 DM is transferred from [place] in view of right-sided loculated pleural effusion. Patient presented to [place] in view of shortness of breaths, chest tightness that started few weeks ago. Patient was admitted on the 02 of August to [place] in view of pneumonia with parapneumonic effusion. Patient was initially treated with thoracocentesis, chest tube and IV antibiotics in the hospital, later was discharged with p.o. cefdinir. Patient returned to the hospital with similar complaints and parapneumonic effusion that started to return in no time. Right hydropneumothorax with a multiloculated pleural effusion was seen on the chest CT during this admission, a gal of fluid and fluid was drained on 08/20/[address] Hernandez after placing chest tube. The pleural fluid was initially serosanguineous, later turned into hemorrhagic with sudden drop in hemoglobin from 9-5.5. Patient received [address] Carey was consulted in view of VATS. 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 No Chest pressure, chest discomfort, palpitations, syncope, lower extremity edema, paroxysmal nocturnal dyspnea Respiratory: Shortness of breath and cough present, No hemoptysis Gastrointestinal: Normal appetite. No nausea, vomiting, diarrhea, constipation, hematemesis, abdominal pain, bloating, melena or fresh blood Musculoskeletal: No edema. Integumentary: No change in skin, hair, nails. No swelling, bruising, abrasions Neurologic: No headache, neck pain, numbness or tingling of the extremities, weakness Psychiatric: No delusions, depression, loss of interest in normal activity or change in sleep pattern, hallucinations, suicidal ideations Endocrine: No fatigue, weakness, polydipsia, polyuria, change in appetite, heat or cold intolerance, sweating, dry skin Exam Vitals: Vital Signs Date Time Temp Pulse Resp B/P (MAP) Pulse Ox O2 Delivery O2 Flow Rate FiO2 08/25/25 14:32 14 08/25/25 14:22 97 122/73 (89) 99 Nasal Cannula 3.0 08/25/25 13:11 97.7 08/24/25 20:00 21 General: General: Patient is sedated, not following commands HEENT: PERRLA, no icterus, pallor, lymphadenopathy, carotid bruit Respiratory system: Chest tube placed in the right side with hemorrhagic fluid being drained. CVS: S1-S2 heard, no murmurs/rubs/gallop GI: Soft, nontender, no organomegaly, no guarding/rigidity, bowel sounds present Neuro: Could not be examined as the patient is not following commands and is sedated, is just out from the surgery Extremities: No edema cyanosis clubbing/deformities Skin: Warm and dry Diagnostic Data Last Recorded Lab Results: 08/25/25184008/25/[id number] Diagnostic Data: Laboratory Tests Test 08/24/25 09:47 Prothrombin Time 11.5 SECONDS (9.0-12.0) INR International Normalized Ratio 1.1 INR Activated Partial Thromboplast Time 35 SECONDS (22-32) H Coagulation Comments Additional Plan Assessment: A 30-year-old male patient with PMH of type 1 DM with complications of peripheral neuropathy presented to the ED as a transfer from [place] in view of recurrent pleural effusions. Patient is admitted for the evaluation management of parapneumonic dual effusion in the right side with sepsis. ID is consulted in view of antibiotic management. Plan: Recurrent complicated parapneumonic effusion s/p VATS with chest tube placement on 08/25/2025 Sepsis, POA 2/2 community-acquired pneumonia History of recent empyema, probable incomplete resolution Elevated leukocyte count, downtrending, elevated ESR, downtrending, normal procalcitonin Uncontrolled diabetes mellitus type 1 could also be one of the risk factors for recurrent presentation Patient had a chest tube placed initially on 08/20 with serosanguineous fluid transitioning to hemorrhagic fluid with drop in hemoglobin Initially received levofloxacin Discontinue levofloxacin, continue IV Zosyn 3.375 g q.8h at least 2-6 weeks, we will be decided based on the intraop findings. Chest tube management per the surgeon Disposition: Continue care in CICU/PCU, ID team we will continue to follow up with the patient. Evelyn Fine MD Internal Medicine, PGY 2 Date of Service: Aug 25, 2025 Billing Provider: COLEMAN IZQUIERDO DO Addendum Patient seen and examined with Dr. Fine. Agree with the above assessment and plan. In brief this is an ID consultation on a 30 year old male for empyema. He had been treated recently at [facility] with Cefdinir for the same but was transferred here on 08/19 for more definitive management. He has been on broad spectrum antibiotics for a few days and was taken to the OR today for VATS. He was seen on anesthesia so better history can be obtained but op report is reviewed. Findings describe a hematoma and loculations. New cultures are pending but nothing had grown from my review of [facility] records. Continue Zosyn for now EVELYN FINE, RES Aug 25, 2025 15:17 COLEMAN IZQUIERDO DO Aug 25, 2025 23:14
--- NOTE | 2025-08-25 15:20 | RADIOLOGY REPORT ---
RENAL ULTRASOUND History: NAA Comparison: None Technique: Multiple real-time sonographic images of the kidney and bladder were obtained in conjunction with Doppler imaging. Findings: The bilateral kidneys are echogenic. The right kidney measures 12 cm and demonstrates no evidence of hydronephrosis, perinephric fluid collection, or shadowing stone. The left kidney measures 10 cm and demonstrates no evidence of hydronephrosis, perinephric fluid collection, or shadowing stone. Urinary bladder: Prevoid urinary bladder volume is 36 mL. Decompressed by Trotter catheter. Ureteral jets not visualized. Pericholecystic edema. Small amount of free pelvic fluid. Left pleural effusion. Impression: No hydronephrosis seen. Pericholecystic edema. Recommend HIDA scan to exclude cholecystitis. Small amount of free pelvic fluid. Left pleural effusion. Echogenic kidneys, which can be seen with medical renal disease.
--- NOTE | 2025-08-25 15:28 | PROGRESS NOTE- Residence ---
Progress Note - Resident Providers to CC Resident Creating Document: RANDALL JIMENES RES ~ Antibiotic Timeout Antibiotic Ordered?: Yes Subjective Seen and examined the patient at bedside. Patient is going to the OR the morning for VATS decortication surgery. He is improving with blood transfusion and he is feeling a lot better on today and ID is on board now. Objective Vital Signs Date Time Temp Pulse Resp B/P (MAP) Pulse Ox O2 Delivery O2 Flow Rate FiO2 08/25/25 14:32 14 08/25/25 14:22 97 122/73 (89) 99 Nasal Cannula 3.0 08/25/25 13:11 97.7 08/24/25 20:00 21 Result Diagram: 08/25/25 0809 08/25/25 0200 General: Awake and alert, in mild distress. Patient is with pallor on today. HEENT: Conjunctiva pink, Sclera clear, Mucus Membranes moist Neck: No masses and tenderness Resp: Unlabored. Decreased breath sounds in the right lung base. fine inspiratory crepitations are heard in right lower zone. No wheezing noted. Cardiovascular: Regular Rate and rhythm, normal S1 and S2 without murmur, rub or gallop Abdomen: Slightly distended, soft and nontender, no organomegaly, no guarding and rigidity, bowel sounds present Neuro: No focal weakness in the upper and lower limb muscles, normal reflexes bilaterally. Cranial nerves II-XII grossly intact Extremities: 1+ lower extremity peripheral edema (chronic) Skin: Warm and Dry Psych: Calm and cooperative at the time of my visit. Coagulation Studies Laboratory Tests Test 08/24/25 09:47 Prothrombin Time 11.5 SECONDS (9.0-12.0) INR International Normalized Ratio 1.1 INR Activated Partial Thromboplast Time 35 SECONDS (22-32) H Coagulation Comments Advance Care Planning Advanced Care plannin - 30 Minutes Assessment Assessment Sepsis 2/2 bilateral pneumonia Unresolved Right pleural effusion likely secondary to parapneumonic effusion possible right hemothorax Covering Gram-positive, Gram-negative, atypical, anaerobic bacteria Failed previous therapy Right hydropneumothorax Right empyema Status post chest tube thoracostomy Right trapped lung Considering his underlying immunosuppression with type 1 diabetes mellitus and high blood sugars right parapneumonic effusion could be secondary to underlying bacterial infection or possible tuberculosis or possible rheumatoid arthritis or possible lung malignancy and we are currently evaluating with [place], QuantiFERON gold test, CRP, RA factor. Chest CT on yesterday showed right hydropneumothorax/multiloculated right pleural effusion, decreased when compared to the previous CT examination. Patchy right lung airspace consolidation. Left lower lobe consolidation. Medicine lymphadenopathy. We changed the antibiotic from Zithromax to levofloxacin and we will continue both Zosyn and levofloxacin in view of previous admission and failed treatment with cephalosporins and Zithromax. Chest tube drainage is almost more than a 1 gal of pleural fluid. Dr. Hernandez is on board and he consulted Dr. Carey for possible decortication surgery. The pleural fluid seems to be bloody red in color and it could be possibly secondary to underlying right lung malignancy. Lights criteria is at least positive for 1 suggestive of exudative but still we are stuck between parapneumonic effusion versus malignant effusion. Patient may benefit from surgical consultation. Considering his previous admission and treatment for pneumonia and loculated effusion with cephalosporins and Zithromax we changed the antibiotics of Zosyn and levofloxacin to cover Gram-positive, Gram-negative, atypical, anaerobic bacteria. TAWANA is negative and QuantiFERON is negative. We consulted ID and automotive glass technician team. ID recommended to continue Zosyn and discontinue levofloxacin and on cefazolin per Dr. Carey's team. Vitals are stable. Uncontrolled type 1 diabetes mellitus peripheral neuropathy A1c is 10.2 and glucose is in 300s On medium dose Humalog protocol and Lantus 10 units. Acute kidney injury likely 2/2 renal tubular stasis Above likely secondary to sepsis Hyponatremia Hypochloremia Serum creatinine is 1.9 Follow up with daily urine electrolytes Pending HIV, HBsAg Follow up with renal ultrasound. Started on IV fluids LR@ 100 mL/hour Avoid nephrotoxin agents, avoid [place], morphine for pain management Renal dosing of medications recommended, levofloxacin 750 mg q.48h or 500 mg initially followed by 250 mg Q 24 Zosyn 4.5 q.12 Strict I&Os Renal diet Severe protein malnutrition Hypoalbuminemia Pedal edema Serum albumin is 1.4 Total protein is 5 On ensure en live p.o. t.i.d. Normocytic normochromic Anemia secondary to acute blood loss Secondary to Possible right hemothorax Reactive thrombocytosis H&H and today is 7.7/21.8 Monitor H&H q.6 H Transfuse if hemoglobin is less than 7 Transfusion orders were placed On Protonix drip. Code Status: Full code DVT prophylaxis: SCDs Analgesia/sedation: Percocet Line/tube: PIV GI prophylaxis: None Nutrition: 75 g Carb controlled diet Prognosis: Guarded Physical therapy: Ordered We spent more than 35 minutes of critical care time with the patient. Disposition: VATS decortication surgery by Dr. Carey on today. Patient is in CICU. Plan per Dr. Carey team . [facility] Internal medicine resident, PGY 2 Plan Plan Sepsis 2/2 bilateral pneumonia Unresolved Right pleural effusion likely secondary to parapneumonic effusion possible right hemothorax Covering Gram-positive, Gram-negative, atypical, anaerobic bacteria Failed previous therapy Right hydropneumothorax Right empyema Status post chest tube thoracostomy Right trapped lung Considering his underlying immunosuppression with type 1 diabetes mellitus and high blood sugars right parapneumonic effusion could be secondary to underlying bacterial infection or possible tuberculosis or possible rheumatoid arthritis or possible lung malignancy and we are currently evaluating with [place], QuantiFERON gold test, CRP, RA factor. Chest CT on yesterday showed right hydropneumothorax/multiloculated right pleural effusion, decreased when compared to the previous CT examination. Patchy right lung airspace consolidation. Left lower lobe consolidation. Medicine lymphadenopathy. We changed the antibiotic from Zithromax to levofloxacin and we will continue both Zosyn and levofloxacin in view of previous admission and failed treatment with cephalosporins and Zithromax. Chest tube drainage is almost more than a 1 gal of pleural fluid. Dr. Hernandez is on board and he consulted Dr. Carey for possible decortication surgery. The pleural fluid seems to be bloody red in color and it could be possibly secondary to underlying right lung malignancy. Lights criteria is at least positive for 1 suggestive of exudative but still we are stuck between parapneumonic effusion versus malignant effusion. Patient may benefit from surgical consultation. Considering his previous admission and treatment for pneumonia and loculated effusion with cephalosporins and Zithromax we changed the antibiotics of Zosyn and levofloxacin to cover Gram-positive, Gram-negative, atypical, anaerobic bacteria. TAWANA is negative and QuantiFERON is negative. We consulted ID and automotive glass technician team. ID recommended to continue Zosyn and discontinue levofloxacin and on cefazolin per Dr. Carey's team. Vitals are stable. Uncontrolled type 1 diabetes mellitus peripheral neuropathy A1c is 10.2 and glucose is in 300s On medium dose Humalog protocol and Lantus 10 units. Acute kidney injury likely 2/2 renal tubular stasis Above likely secondary to sepsis Hyponatremia Hypochloremia Serum creatinine is 1.9 Follow up with daily urine electrolytes Pending HIV, HBsAg Follow up with renal ultrasound. Started on IV fluids LR@ 100 mL/hour Avoid nephrotoxin agents, avoid [place], morphine for pain management Renal dosing of medications recommended, levofloxacin 750 mg q.48h or 500 mg initially followed by 250 mg Q 24 Zosyn 4.5 q.12 Strict I&Os Renal diet Severe protein malnutrition Hypoalbuminemia Pedal edema Serum albumin is 1.4 Total protein is 5 On ensure en live p.o. t.i.d. Normocytic normochromic Anemia secondary to acute blood loss Secondary to Possible right hemothorax Reactive thrombocytosis H&H and today is 7.7/21.8 Monitor H&H q.6 H Transfuse if hemoglobin is less than 7 Transfusion orders were placed On Protonix drip. Code Status: Full code DVT prophylaxis: SCDs Analgesia/sedation: Percocet Line/tube: PIV GI prophylaxis: None Nutrition: 75 g Carb controlled diet Prognosis: Guarded Physical therapy: Ordered We spent more than 35 minutes of critical care time with the patient. Disposition: VATS decortication surgery by Dr. Carey on today. Patient is in CICU. Plan per Dr. Carey team . [facility] Internal medicine resident, PGY 2 Date of Service: Aug 25, 2025 Billing Provider: GRACIE MERCEDES MDTEMPE ST. [facility]ITAL[facility], RES Aug 25, 2025 15:28
--- NOTE | 2025-08-25 15:36 | PROGRESS NOTE ---
Progress Note CV Providers to CC ~ Antibiotics Ordered?: Yes Objective Vitals Vital Signs Date Time Temp Pulse Resp B/P (MAP) Pulse Ox O2 Delivery O2 Flow Rate FiO2 08/25/25 15:00 99 12 138/69 (92) 96 Room Air 08/25/25 14:22 3.0 08/25/25 13:11 97.7 08/24/25 20:00 21 Lab Results: 08/25/25 0809 08/25/25 0200 Coagulation Studies Laboratory Tests Test 08/24/25 09:47 Prothrombin Time 11.5 SECONDS (9.0-12.0) INR International Normalized Ratio 1.1 INR Activated Partial Thromboplast Time 35 SECONDS (22-32) H Coagulation Comments Cardiac Rhythm: Sinus Rhythm Problem\Assessment\Plan Additional Plan It should be noted that when preop orders were entered that vein mapping and carotid duplex studies were inadverently ordered. Supervising Co-signing Provider: IDANIA Dixon Aug 25, 2025 15:36
[2025-08-25] MEDS ORDERED: piperacillin/tazo 4.5gm/100ml 100 ML IV SCH (16:00)
[2025-08-25] MEDS: ceFAZolin/D5W- 1GM premix 50 ML IV SCH (17:17)
[2025-08-25] MEDS: piperacillin/tazo 3.375gm/50ml 50 ML IV SCH (18:02)
--- NOTE | 2025-08-25 18:18 | OPERATIVE REPORT ---
DATE OF SURGERY: 08/25/2025 DICTATING PHYSICIAN: Mp Carey MD PREOPERATIVE DIAGNOSES: * Right empyema. * Right pleural hemorrhage. * . POSTOPERATIVE DIAGNOSES: * Right empyema. * Right pleural hemorrhage. * . OPERATIONS PERFORMED: * Right video-assisted thoracoscopic surgery for evacuation of hematoma. * Right VATS decortication. SURGEON: Mp Carey MD ADDRESS CHANGE CLERK: BILLY Boggs ANESTHESIOLOGIST: Manny Balderrama MD ANESTHESIA: General plus local. DRAINS: * A 32-Barbadian right-angle chest tube. * A 32-Barbadian straight chest tube. * A 24-Barbadian Kwabena. COMPLICATIONS: None. BLOOD LOSS: 1200 mL. SPECIMENS: Pleural fluid. DESCRIPTION OF PROCEDURE: The patient was taken to the operating room and placed on the table in supine position. After anesthesia was induced, the patient was positioned in the left lateral decubitus position with the right side up. A timeout was called and the patient was correctly identified by the surgeons and the OR staff. The patient was prepped and draped in the usual sterile fashion. A small transverse incision was made at the posterior axillary line corresponding to the fifth intercostal space. The dissection was carried out down to the chest wall and the chest cavity was entered. Marcaine 0.25% was used prior to making the incision. We immediately evacuated approximately 800 mL of dark old blood. I then placed the camera into position with visualization noticing loculated pockets of old blood and pleural attachments to the visceral pleura primarily in the lower lobe. I also noted a fairly large extrapleural hematoma adjacent to the entry site of the pigtail, which had been taken out prior to the prep. I then grasped the apex and was able to dissect it free from the parietal pleura. I then worked my way posteriorly freeing up the lung down to the esophagus and posterior hilum. I worked my way down to the diaphragmatic surface and with blunt dissection, I was able to decorticate a peel from the lateral and anterior basal segments of the right lower lobe. It did take some time and effort to free the lung from the diaphragmatic surface. A counterincision was made more inferior and posterior through which instruments were used. The instruments were interchanged through both incisions throughout the case. There was a fair amount of old blood as well as oozing on the decorticated surface. I then irrigated the entire cavity with Ancef and saline. I continued the mobilization by peeling the visceral surface off the pericardia until the pulmonary veins could be seen. I also freed up the medial apex off of the superior vena cava. There were pockets of clear fluid also noted during this mobilization. I had the anesthesiologist inflate the lung and noted good lung to chest wall apposition. Next, we irrigated one more time to look for any other pockets and none were found. I placed a 32-Barbadian right-angle chest tube through the first incision and directed it posteriorly and inferiorly. Through the second incision, a 32-Barbadian straight chest tube was placed and directed posteriorly and then towards the apex. A third small opening was made through which a 24-Barbadian Kwabena drain was placed and put essentially in the dependent position in the pleural cavity. The chest tubes were secured to the chest wall. I used more Marcaine to anesthetize these openings. The muscle and subcutaneous tissue was approximated around the two chest tubes. All the instruments were accounted for at the end of the case. The patient tolerated the procedure well and was taken to the PACU in stable condition. Mp Carey MD TID: [id number] RECEIPT: [id number] CECILIO/ZAFAR
--- NOTE | 2025-08-25 18:35 | PATHOLOGY REPORT ---
[facility] [address] [place] [address] NON-BOAT PILOT CYTOLOGY REPORT CaseNumber: [id number] Surgeon:Leandra Hernandez M.D. CLINICAL INFORMATION CLINICAL INFORMATION: DM1, epilepsy, neuropathy, pneumonia. DIAGNOSIS DIAGNOSIS: PLEURAL FLUID; THORACENTESIS - NEGATIVE FOR MALIGNANT EPITHELIAL CELL POPULATION. MICROSCOPIC DESCRIPTION MICROSCOPIC DESCRIPTION: One H&E stained slide from cell block, one Pap stained double cytospin slide, and one Diff-Quik stained smear slide are examined. Present are blood elements including increased numbers of neutrophils. A malig nant epithelial cell population is not identified. (bb) GROSS DESCRIPTION GROSS DESCRIPTION: Received labeled with the patient's name and identified as "Lung fluid" is 5 mL of unfixed blood, cloudy, watery fluid. Specific gravity is 1.030. One smear for Diff-Quik, one double cytospin slide, and one cell block are prepared. Combined with one bottle of cytostat red after taking the specific gravity and making the Diff Quik. The combined ML is 12.5. The cell block is submitted as A1. Removed at 1630, and placed in formalin at 1605. Flow sent by [facility]. (mwb) Electronically signed by: Farhad Arias M.D. 08/25/2025 6:01:00 PM
[2025-08-25 19:05] LABS: MEAN PLATELET VOLUME 7.5 FL (7.4-10.4); RED CELL DISTRIBUTION WIDTH 14.2 % (11.5-14.5)
[2025-08-25 19:11] LABS: CREATININE 1.74 MG/DL (0.60-1.10); TOTAL CARBON DIOXIDE 21.3 MMOL/L (24-32); eCRCL 59 ML/MIN; eGFR 47 ML/MIN
[2025-08-25] MEDS: HYDROcodone/acetaminophen 10/325mg tab PO PRN (20:15)
[2025-08-25] MEDS: insulin regular, human 10 units/0.1 ml syringe SQ ONE (21:08)
[2025-08-26] VITALS (21 sets, daily range): BP systolic 94–133; BP diastolic 48–82; PULSE 88–109; RESP 12–18; TEMP 98.1; O2SAT 92–98
[2025-08-26] MEDS: INSULIN LISPRO 100 UNIT/ML INSULN.PEN MULTI-DOSE SQ ONE (00:15)
[2025-08-26] MEDS ORDERED: dextrose 50%-water 50ml dispensing syringe IV PRN (01:45)
[2025-08-26] MEDS: Insulin Reg/NS 100units/100mL 100 ML IV SCH (02:18)
[2025-08-26 06:09] LABS: CREATININE 1.85 MG/DL (0.60-1.10); TOTAL CARBON DIOXIDE 25.5 MMOL/L (24-32); eCRCL 55 ML/MIN; eGFR 43 ML/MIN
[2025-08-26 06:13] LABS: LEUKOCYTE ESTERASE ,URINE NEGATIVE (Neg); NITRITES, URINE NEGATIVE (Neg); OCCULT BLOOD,URINE MODERATE (Neg)
[2025-08-26 06:16] LABS: OSMOLALITY UA 492.0 MOSM/K (50-1400)
[2025-08-26 06:18] LABS: UA COLLECTION TYPE NON-SPECIFIED
[2025-08-26 06:20] LABS: SQUAMOUS EPITHELIAL CELL,UR FEW /LPF (FEW)
[2025-08-26 06:20] LABS: MEAN PLATELET VOLUME 7.5 FL (7.4-10.4); RED CELL DISTRIBUTION WIDTH 15.0 % (11.5-14.5)
[2025-08-26 06:22] LABS: URIC ACID CRYSTALS FEW /HPF (NEGATIVE)
--- NOTE | 2025-08-26 06:36 | RADIOLOGY REPORT ---
CHEST RADIOGRAPH Indication: s/p R VATS, decortication Technique: Portable upright AP view of the chest was performed. Comparison: DI CHEST,SINGLE VIEW on DOS: 08/25/25, DI CHEST,SINGLE VIEW on DOS: 08/24/25, DI CHEST,SINGLE VIEW on DOS: 08/24/25, CT CT CHEST on DOS: 08/23/25, DI CHEST,SINGLE VIEW on DOS: 08/23/25, DI CHEST,SINGLE VIEW on DOS: 08/25/25 FINDINGS: Stable 3 large bore right-sided chest tubes. There are patchy opacities throughout the right lung. There are patchy opacities in the left lung base. No pneumothorax is seen bilaterally. The heart is borderline enlarged. IMPRESSION: 1. No interval change.
[2025-08-26 06:47] LABS: CREATININE,URINE RANDOM 92.0 MG/DL; TOTAL PROTEIN,URINE RANDOM 134.3 MG/DL; UA UREA RANDOM 640.0 MG/DL; URINE AMPHETAMINE SCREEN NEGATIVE (Neg); URINE BARBITUATE SCREEN NEGATIVE (Neg); URINE BENZODIAZEPINES SCREEN POSITIVE (Neg); URINE CANNABINOID SCREEN NEGATIVE (Neg); URINE COCAINE SCREEN NEGATIVE (Neg); URINE METHADONE SCREEN NEGATIVE (Neg); URINE OPIATE SCREEN POSITIVE (Neg); URINE PHENCYCLIDINE SCREEN NEGATIVE (Neg)
[2025-08-26] MEDS ORDERED: levoFLOXACIN-Levaquin 250mg/D5 50 ML IV SCH (08:00)
--- NOTE | 2025-08-26 12:01 | PROGRESS NOTE ---
Progress Note Dictate Providers to CC ~ Progress Note: I have asked Raymond about any previous serious illnesses. He is quick to say no drug use no alcohol no smoking and no exposure to weird animals. Dr. Banerjee's VATS much appreciated. This appears to have been a series of misadventures following probable bleeding following the 1st thoracentesis. He reports some loculated subpleural hematoma around one of the thoracentesis sites but did do a VATS to permit re-expansion of the lung. Raymond appears fairly comfortable. One of the chest tube drainage is is bloody the other not much. Urine to serum creatinine is 142/92 = 1.5:1, so we estimate this healthy young man's muscle mass to be normal we will do use an estimate of 1.6 g of creatinine x1 0.5 equals 2.4 g of proteinuria. 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 I expect these to be normal. Antibiotic Ordered?: Yes Objective Vitals Vital Signs Date Time Temp Pulse Resp B/P (MAP) Pulse Ox O2 Delivery O2 Flow Rate FiO2 08/26/25 11:00 92 12 118/59 (78) 98 Nasal Cannula 2.0 08/26/25 08:00 98.2 08/24/25 20:00 21 Lab Results: 08/26/25 0430 08/26/25 0430 Coagulation Studies Laboratory Tests Test 08/24/25 09:47 Prothrombin Time 11.5 SECONDS (9.0-12.0) INR International Normalized Ratio 1.1 INR Activated Partial Thromboplast Time 35 SECONDS (22-32) H Coagulation Comments RASHEL GUERRIER MD Aug 26, 2025 12:01
--- NOTE | 2025-08-26 12:18 | PROGRESS NOTE ---
Progress Note CV Providers to CC ~ Central Line/PICC still needed: No Antibiotics Ordered?: Yes If Yes, Indications?: pneumonia MRSA Education MRSA Education Provided: N/A Subjective Subjective Pain well controlled, tolerating po, minimal ambulation Objective Vitals Vital Signs Date Time Temp Pulse Resp B/P (MAP) Pulse Ox O2 Delivery O2 Flow Rate FiO2 08/26/25 11:00 92 12 118/59 (78) 98 Nasal Cannula 2.0 08/26/25 08:00 98.2 08/24/25 20:00 21 Lab Results: 08/26/25 0430 08/26/25 0430 Objective Alert, no neuro deficits Diminished breath sounds on right Dressings dry Coagulation Studies Laboratory Tests Test 08/24/25 09:47 Prothrombin Time 11.5 SECONDS (9.0-12.0) INR International Normalized Ratio 1.1 INR Activated Partial Thromboplast Time 35 SECONDS (22-32) H Coagulation Comments Cardiac Rhythm: Sinus Rhythm, Sinus Tachycardia Problem\Assessment\Plan Additional Plan POD#1, s/p VATS evacuation of hematoma, decortication. Progressing well. DC art line Ambulate. Advance diet Continue chest tube ANDREW Boyle MD Aug 26, 2025 12:18
[2025-08-26 13:39] LABS: HBSAG SCREEN Negative (Negative); HEP B CORE AB, IGM Negative (Negative)
--- NOTE | 2025-08-26 15:40 | PROGRESS NOTE- Residence ---
Progress Note - Resident Providers to CC Resident Creating Document: TYREE ROMEO RES ~ Antibiotic Timeout Antibiotic Ordered?: Yes Subjective Patient was seen and examined at the bedside. He has an output of about 220 mL from the 1st chest tube and 400 mL output from the 2nd chest tube. He has slight discomfort at the site of chest tube placement but no pain. Patient is able to take oral nutrition and is having good urine output. Hemoglobin is stable at 9. Objective Vital Signs Date Time Temp Pulse Resp B/P (MAP) Pulse Ox O2 Delivery O2 Flow Rate FiO2 08/26/25 14:00 97 15 97/50 (66) 93 Nasal Cannula 2.0 08/26/25 13:00 98.1 08/24/25 20:00 21 Result Diagram: 08/26/2542908/26/25429 General: Awake and alert, no acute distress HEENT: Conjunctiva pink, Sclera clear, Mucus Membranes moist Neck: No masses and tenderness Resp: Unlabored. Decreased breath sounds in the right lung base associated with crackles. No wheezing noted. Cardiovascular: Regular Rate and rhythm, normal S1 and S2 without murmur, rub or gallop Abdomen: Slightly distended, soft and nontender, no organomegaly, no guarding and rigidity, bowel sounds present Neuro: No focal weakness in the upper and lower limb muscles, normal reflexes bilaterally. Cranial nerves II-XII grossly intact Extremities: 1+ lower extremity peripheral edema (chronic) Skin: Warm and Dry Psych: Calm and cooperative at the time of my visit. Coagulation Studies Laboratory Tests Test 08/24/25 09:47 Prothrombin Time 11.5 SECONDS (9.0-12.0) INR International Normalized Ratio 1.1 INR Activated Partial Thromboplast Time 35 SECONDS (22-32) H Coagulation Comments Assessment Assessment This is a 30-year-old male with poorly controlled type 1 diabetes, right-sided recurrent parapneumonic effusion admitted for management of parapneumonic effusion. Plan Plan Sepsis 2/2 bilateral pneumonia Unresolved Right pleural effusion likely secondary to parapneumonic effusion possible right hemothorax Covering Gram-positive, Gram-negative, atypical, anaerobic bacteria Failed previous therapy Right hydropneumothorax Right empyema Status post chest tube thoracostomy Right trapped lung Right-sided chest wall hematoma Considering his underlying immunosuppression with type 1 diabetes mellitus and high blood sugars right parapneumonic effusion could be secondary to underlying bacterial infection or possible tuberculosis or possible rheumatoid arthritis or possible lung malignancy and we are currently evaluating with TAWANA, QuantiFERON gold test, CRP, RA factor. However all of them were negative. Chest CT on yesterday showed right hydropneumothorax/multiloculated right pleural effusion, decreased when compared to the previous CT examination. Patchy right lung airspace consolidation. Left lower lobe consolidation. Medicine lymphadenopathy. We changed the antibiotic from Zithromax to levofloxacin and we will continue both Zosyn and levofloxacin in view of previous admission and failed treatment with cephalosporins and Zithromax. Chest tube drainage is almost more than a [address] of pleural fluid[address] Dr. Hernandez is on board and he consulted Dr. Carey for possible decortication surgery. The pleural fluid seems to be bloody red in color and it could be possibly secondary to underlying traumatic pleural tap. Lights criteria is at least positive for 1 suggestive of exudative . Patient may benefit from surgical consultation. Considering his previous admission and treatment for pneumonia and loculated effusion with cephalosporins and Zithromax we changed the antibiotics of Zosyn and levofloxacin to cover Gram-positive, Gram-negative, atypical, anaerobic bacteria. We consulted ID and analyst microbiology lab team. ID recommended to continue Zosyn, cefazolin and discontinue levofloxacin. Patient underwent VATS with Cardiothoracic surgeon currently has two chest tubes in place. Vital signs are stable after the procedure. Uncontrolled type 1 diabetes mellitus peripheral neuropathy A1c is 10.2 and glucose is in 300s On medium dose Humalog protocol and Lantus 10 units. Goal blood sugar between 140 and 180. Patient had a few episodes of hypoglycemia during his stay. Acute kidney injury likely 2/2 renal tubular stasis, improving Above likely secondary to sepsis, diabetic nephropathy Can not rule out nephrotic syndrome Hyponatremia Hypochloremia Follow up with daily urine electrolytes Negative HIV, HBsAg Started on IV fluids LR@ 100 mL/hour Avoid nephrotoxin agents, avoid [place], morphine for pain management Renal dosing of medications recommended, levofloxacin 750 mg q.48h or 500 mg initially followed by 250 mg Q 24 Zosyn 4.5 q.12 Strict I&Os Renal diet Severe protein malnutrition Hypoalbuminemia Pedal edema Serum albumin is 1.4 Total protein is 5 On ensure en live p.o. t.i.d. Normocytic normochromic Anemia secondary to acute blood loss Secondary to Possible right hemothorax Reactive thrombocytosis H&H and today is 9.1 Transfuse if hemoglobin is less than 7 Transfusion orders were placed. FOBT negative Code Status: Full code DVT prophylaxis: SCDs Analgesia/sedation: Percocet Line/tube: PIV GI prophylaxis: None Nutrition: 75 g Carb controlled diet Prognosis: Guarded Physical therapy: Ordered We spent more than 35 minutes of critical care time with the patient. Disposition: Continue care in CICU, plan per Cardiothoracic surgeon. Anticipated downgrade to PCU tomorrow. We will continue to follow. Tyree Smith Internal medicine resident, PGY 2 Date of Service: Aug 26, 2025 Billing Provider: GRACIE MERCEDES MD,TYREE SMITH, RES Aug 26, 2025 15:40
[2025-08-26] MEDS ORDERED: dexamethasone 4mg/ml inj INJ ONE (16:22)
--- NOTE | 2025-08-26 21:26 | PROGRESS NOTE ---
Progress Note ID Providers to CC ~ Progress Note Progress Note: Antibiotic Days Zosyn 7 S/P Levaquin Lines PIV Micro 08/19 Blood- negative 08/21 Pleural- negative 08/25 Operative- ngtd Subjective: Patient was seen in the ICU but he was alert and sitting in a chair with his chest tubes beside him. He had no complaints Objective Vitals: Afebrile, 97, 15, 114/71, 96% on RA General: Alert, NAD CV: Regular RESP: Clear anteriorly, chest tubes in place ABD: Soft, nontender EXT: no rash, edema LINES:PIV ok Laboratory Tests 08/26/25 04:30 08/26 CXR 1. No interval change. Assessment // R sided empyema s/p VATS with decortication, evacuation hematoma on 08/25 with operative cultures (taken on Zosyn) pending. However, prior cultures, including those at [facility] have been non-revealing // Leukocytosis // Acute vs CKD // DM, A1c 10.2 // NKDA Plan -Continue Zosyn -Will need antibiotics, the above or the empiric PO equivalent for 2 more weeks -Follow up pending operative cultures -Follow up pending nephrology workup -Chest tube per CVSx -Monitor WBC count, Cr -Will continue to follow COLEMAN IZQUIERDO DO Aug 26, 2025 21:25
[2025-08-27 06:00] VITALS: BP 112/64; PULSE 111; RESP 18; TEMP 97.8; O2SAT 95
[2025-08-27 07:05] LABS: MEAN PLATELET VOLUME 6.8 FL (7.4-10.4); RED CELL DISTRIBUTION WIDTH 15.2 % (11.5-14.5)
--- NOTE | 2025-08-27 07:27 | RADIOLOGY REPORT ---
CHEST RADIOGRAPH Indication: s/p R VATS, decortication Technique: Single frontal view of the chest was obtained Comparison: DI CHEST,SINGLE VIEW on DOS: 08/26/25, DI CHEST,SINGLE VIEW on DOS: 08/25/25, DI CHEST,SINGLE VIEW on DOS: 08/24/25 IMPRESSION: Heart appears stable in size. The left lung appears clear. Right chest tubes appear similar to prior examination with possible trace right basal pneumothorax and atelectasis. No left pneumothorax. No significant interval change.
[2025-08-27 07:51] LABS: CREATININE 1.54 MG/DL (0.60-1.10); TOTAL CARBON DIOXIDE 29.8 MMOL/L (24-32); eCRCL 66 ML/MIN; eGFR 54 ML/MIN
[2025-08-27] MEDS ORDERED: levoFLOXACIN-Levaquin 250mg/D5 50 ML IV SCH (08:00)
--- NOTE | 2025-08-27 09:09 | PROGRESS NOTE ---
Progress Note CV Providers to CC ~ Antibiotics Ordered?: Yes Subjective Subjective S/P R VATS, evacuation of hematoma, decort POD # 2. He is quite sore this morning. Also complains of scrotal edema and periph edema. Had a BM last night. Walked yesterday. Objective Vitals Vital Signs Date Time Temp Pulse Resp B/P (MAP) Pulse Ox O2 Delivery O2 Flow Rate FiO2 08/27/25 06:00 107 08/26/25 20:00 18 93 Room Air 08/26/25 19:35 98.1 122/81 (95) 08/26/25 14:00 2.0 08/24/25 20:00 21 Lab Results: 08/27/25 0645 08/27/25 0645 Objective Lungs - diminished R Heart - RRR, SR Abd - soft, + BS Extr - OK Incisions - dsgs CDI Coagulation Studies Laboratory Tests Test 08/24/25 09:47 Prothrombin Time 11.5 SECONDS (9.0-12.0) INR International Normalized Ratio 1.1 INR Activated Partial Thromboplast Time 35 SECONDS (22-32) H Coagulation Comments Cardiac Rhythm: Sinus Rhythm, Sinus Tachycardia Problem\Assessment\Plan Additional Plan POD # 2 CT's 150 past 24 hours Scrotal and periph edema Multiple transfusions. Hgb 8.4 Creat downtrending. Will continue gentle diuresis Sepsis Screening Reassessment Date: Aug 27, 2025 Supervising Co-signing Provider: IDANIA Dixon Aug 27, 2025 09:09
--- NOTE | 2025-08-27 11:04 | PROGRESS NOTE ---
Progress Note Dictate Providers to CC ~ Progress Note: 2.5 L of urine output. He appears comfortable. Chest x-ray shows persistent pleural reaction in the right lower lobe and middle lobe but better aeration throughout the right lung, cardiac silhouette still shifted towards the right. Studies described yesterday show nephrotic range proteinuria compatible with his 20 years of diabetes. He will need follow up with management with statin and lisinopril after discharge to try to slow progression of his diabetic nephropathy. Studies for other possible causes of a pulmonary renal syndrome are still pending. Antibiotic Ordered?: Yes Objective Vitals Vital Signs Date Time Temp Pulse Resp B/P (MAP) Pulse Ox O2 Delivery O2 Flow Rate FiO2 08/27/25 06:00 107 08/26/25 20:00 18 93 Room Air 08/26/25 19:35 98.1 122/81 (95) 08/26/25 14:00 2.0 08/24/25 20:00 21 Lab Results: 08/27/25 0645 08/27/25 0645 Coagulation Studies Laboratory Tests Test 08/24/25 09:47 Prothrombin Time 11.5 SECONDS (9.0-12.0) INR International Normalized Ratio 1.1 INR Activated Partial Thromboplast Time 35 SECONDS (22-32) H Coagulation Comments RASHEL GUERRIER MD Aug 27, 2025 11:04
[2025-08-27] MEDS: INSULIN LISPRO 100 UNIT/ML INSULN.PEN MULTI-DOSE SQ SCH (12:00)
--- NOTE | 2025-08-27 14:38 | PROGRESS NOTE- Residence ---
Progress Note - Resident Providers to CC Resident Creating Document: ANDER JIMENES RES ~ Antibiotic Timeout Antibiotic Ordered?: Yes Subjective Patient was seen and examined at the bedside. Status post right VATS and evacuation of hematoma, decortication surgery POD day two . He is still complaining of the swelling of the scrotum and pedal edema. He has an output of about 300 mL from the 1st chest tube and for 50 mL output from the 2nd chest tube. He still has the pain over the right side of the chest aggravated to 8/10 if moving. Status post right VATS and evacuation of hematoma, decortication surgery . Objective Vital Signs Date Time Temp Pulse Resp B/P (MAP) Pulse Ox O2 Delivery O2 Flow Rate FiO2 08/27/25 08:00 Room Air 08/27/25 06:00 107 08/26/25 20:00 18 93 08/26/25 19:35 98.1 122/81 (95) 08/26/25 14:00 2.0 08/24/25 20:00 21 Result Diagram: 08/27/2545 08/27/2545 General: Awake and alert, in mild distress. Not in acute distress. With the 2 chest tubes HEENT: Conjunctiva pink, Sclera clear, Mucus Membranes moist Neck: No masses and tenderness Resp: Unlabored. Decreased breath sounds in the right lung base. fine inspiratory crepitations are heard in bilateral lower zone. No wheezing noted. Cardiovascular: Regular Rate and rhythm, normal S1 and S2 without murmur, rub or gallop Abdomen: Slightly distended, soft and nontender, no organomegaly, no guarding and rigidity, bowel sounds present Neuro: No focal weakness in the upper and lower limb muscles, normal reflexes bilaterally. Cranial nerves II-XII grossly intact Extremities: 1+ lower extremity peripheral edema (chronic) Skin: Warm and Dry Psych: Calm and cooperative at the time of my visit. Coagulation Studies Laboratory Tests Test 08/24/25 09:47 Prothrombin Time 11.5 SECONDS (9.0-12.0) INR International Normalized Ratio 1.1 INR Activated Partial Thromboplast Time 35 SECONDS (22-32) H Coagulation Comments Advance Care Planning Advanced Care plannin - 30 Minutes Assessment Assessment This is a 30-year-old male with poorly controlled type 1 diabetes, right-sided recurrent parapneumonic effusion admitted for management of parapneumonic effusion. Plan Plan Sepsis 2/2 bilateral pneumonia Unresolved Right pleural effusion likely secondary to parapneumonic effusion possible right hemothorax Covering Gram-positive, Gram-negative, atypical, anaerobic bacteria Failed previous therapy Right hydropneumothorax Right empyema Status post chest tube thoracostomy Right trapped lung Right-sided chest wall hematoma Management plan per thoracic surgeon. Uncontrolled type 1 diabetes mellitus peripheral neuropathy A1c is 10.2 and glucose is in 193 On high dose Humalog protocol and Lantus 18 units Goal blood sugar between 140 and 180. Acute kidney injury likely 2/2 renal tubular stasis, improving Above likely secondary to sepsis, diabetic nephropathy Can not rule out nephrotic syndrome Hyponatremia, resolved Hypochloremia, resolved Follow up with daily urine electrolytes Negative HIV, HBsAg Discontinued IV fluids Avoid nephrotoxin agents, avoid [place], morphine for pain management Discontinued levofloxacin We are continuing Zosyn 4.5 q.12 Strict I&Os Renal diet Severe protein malnutrition Hypoalbuminemia Pedal edema Serum albumin is 1.4 Total protein is 5.1 On ensure en live p.o. t.i.d. Normocytic normochromic Anemia secondary to acute blood loss Secondary to Possible right hemothorax Reactive thrombocytosis H&H and today is 8.4/24.7 Transfuse if hemoglobin is less than 7 Transfusion orders were placed. FOBT negative Code Status: Full code DVT prophylaxis: SCDs Analgesia/sedation: Tramadol, acetaminophen, lidocaine for local application Line/tube: PIV GI prophylaxis: None Nutrition: 75 g Carb controlled diet Prognosis: Guarded Physical therapy: Ordered We spent more than 35 minutes of critical care time with the patient. Disposition: We will continue care in PCU. Chest tube management plan per thoracic surgeon. Patient is moving the right direction. PT needs re-evaluate again on tomorrow and tries to today and May possibly need the rehab discharge. Ander Jimenes Internal medicine resident, PGY 2 Date of Service: Aug 27, 2025 Billing Provider: GRACIE MERCEDES MD, VENKATESH, RES Aug 27, 2025 14:38
[2025-08-27 18:00] VITALS: BP 112/68; PULSE 104; RESP 12; TEMP 98.2; O2SAT 93
[2025-08-27 20:00] VITALS: RESP 12; O2SAT 93
[2025-08-27] MEDS: insulin glargine (Lantus) pen - multi-dose SQ SCH (21:05)
[2025-08-27 22:00] VITALS: BP 108/62; PULSE 102; RESP 11; TEMP 97.5; O2SAT 92
[2025-08-28] VITALS (10 sets, daily range): BP systolic 112–137; BP diastolic 63–79; PULSE 90–106; RESP 11–18; TEMP 96.9–98.3; O2SAT 92–96
[2025-08-28 07:54] LABS: MEAN PLATELET VOLUME 6.6 FL (7.4-10.4); RED CELL DISTRIBUTION WIDTH 14.8 % (11.5-14.5)
--- NOTE | 2025-08-28 07:59 | RADIOLOGY REPORT ---
CHEST RADIOGRAPH Indication: s/p R VATS, decortication Technique: Portable upright AP view of the chest was performed. Comparison: DI CHEST,SINGLE VIEW on DOS: 08/27/25, DI CHEST,SINGLE VIEW on DOS: 08/26/25, DI CHEST,SINGLE VIEW on DOS: 08/25/25, DI CHEST,SINGLE VIEW on DOS: 08/24/25, DI CHEST,SINGLE VIEW on DOS: 08/24/25, DI CHEST,SINGLE VIEW on DOS: 08/26/25 FINDINGS: Stable 3 large bore right-sided chest tubes. There are patchy opacities throughout the right lung. There are patchy opacities in the left lung base. No pneumothorax is seen bilaterally. The heart is borderline enlarged. IMPRESSION: 1. No interval change.
[2025-08-28 08:40] LABS: CREATININE 1.28 MG/DL (0.60-1.10); TOTAL CARBON DIOXIDE 30.9 MMOL/L (24-32); eCRCL 80 ML/MIN; eGFR 66 ML/MIN
--- NOTE | 2025-08-28 10:36 | PROGRESS NOTE- Residence ---
Progress Note - Resident Providers to CC Resident Creating Document: MARCELL VILLASEÑOR RES ~ Antibiotic Timeout Antibiotic Ordered?: Yes Subjective Patient was seen and examined at the bedside. Status post right VATS and evacuation of hematoma, decortication surgery by Dr. Carey on 08/26/2025. Chest tube output of 70 mL. Patient is comfortable and did not report any new complaints. Patient's kidney function is improving, has a urine output of 0.86 mL/kg per hour, the creatinine is almost at the baseline. If the patient continues to improve we will sign off on the patient tomorrow. Objective Vital Signs Date Time Temp Pulse Resp B/P (MAP) Pulse Ox O2 Delivery O2 Flow Rate FiO2 08/28/25 07:28 16 08/28/25 06:00 96.9 97 121/75 (90) 96 Room Air 08/26/25 14:00 2.0 08/24/25 20:00 21 Result Diagram: 08/28/2557 08/28/25656 General: Awake and alert, in mild distress. Not in acute distress. With the 2 chest tubes HEENT: Conjunctiva pink, Sclera clear, Mucus Membranes moist Neck: No masses and tenderness Resp: Unlabored. Decreased breath sounds in the right lung base. fine inspiratory crepitations are heard in bilateral lower zone. No wheezing noted. Cardiovascular: Regular Rate and rhythm, normal S1 and S2 without murmur, rub or gallop Abdomen: Slightly distended, soft and nontender, no organomegaly, no guarding and rigidity, bowel sounds present Neuro: No focal weakness in the upper and lower limb muscles, normal reflexes bilaterally. Cranial nerves II-XII grossly intact Extremities: 1+ lower extremity peripheral edema (chronic) Skin: Warm and Dry Psych: Calm and cooperative at the time of my visit. Coagulation Studies Laboratory Tests Test 08/24/25 09:47 Prothrombin Time 11.5 SECONDS (9.0-12.0) INR International Normalized Ratio 1.1 INR Activated Partial Thromboplast Time 35 SECONDS (22-32) H Coagulation Comments Plan Plan Assesment This is a 30-year-old male with past medical history of type 1 diabetes mellitus, transferred from [place] due to right-sided loculated pleural effusion. Patient was previously admitted at [place] on August 02 for pneumonia with parapneumonic effusion, was treated with thoracocentesis, chest tube and IV antibiotics, chest tube was removed and he was discharged on August 10. This is the 1st episode of pneumonia, no history of tobacco use or drugs. He presented again with worsening shortness of breadth. Chest CT done during this visit showed right hydropneumothorax, multiloculated right pleural effusion. Chest tube was placed on 08/20/[address] Hernandez, drained almost more than a gal of pleural fluid. Initially the fluid was serosanguineous later became bright red with sudden drop in the hemoglobin from 9 to 5.5. 1 unit of PRBC was transfused. Dr. Carey was consulted, VATS and decortication surgery was done on 08/26/2025. During his stay in the hospital the patient developed NAA, creatinine 2.35 from 1.73 at the time of admission. Which is getting better slowly, returning to baseline with a creatinine of 1.28. Urine analysis shows a urine protein of > 300, could be secondary to diabetic nephropathy, would need further evaluation and outpatient. Studies for pulmonary renal syndrome pending. Plan NAA Likely secondary to decreased perfusion to kidneys because of acute blood loss Patient has been diabetic since age 10, there could be some underlying chronic kidney disease. Baseline kidney function is not known. Creatinine is slowly getting better, 1.28 today with a GFR of 66. Urine output-0.86 mL/kg per hour Plan Negative HIV, HBsAg Renal ultrasound showed echogenic kidneys. Started on IV fluids LR@ 100 mL/hour Avoid nephrotoxin agents, avoid [place], morphine for pain management Strict I&Os Proteinuria Based on 03/17/2025 labs, UPCR 152/92= 1.5, for a healthy young man muscle mass, we tailored to about 1.6 g of creatinine a day, 1.5x1.6= 2.4 g of protein a day, showing sub nephrotic to nephrotic range of proteinuria This could be secondary to diabetic nephropathy, requiring out patient follow up, Consider initiating lisinopril once the patient is more stable. TAWANA negative, follow up with Anca, C3, C4, anti GBM antibodies for further workup to rule out other renal pulmonary syndrome. Acute blood loss anemia-improving Likely secondary to hemorrhagic effusion in the chest tube Hemoglobin is about 7.8 Received a total of 6 units of blood Continue to monitor H and H Transfuse if HGB< 7. Sepsis secondary to bilateral pneumonia Pleural effusion secondary to parapneumonic effusion vs malignancy s/p chest tube thoracotomy Pleural effusion evolved into hemorrhagic effusion s/p VATS, evacuation of hematoma and decortication on 08/26/25 At the time of admission patient had multiloculated right pleural effusion positive Lights criteria. Chest tube was placed on 08/20/[address] Hernandez, drained almost more than a gal of pleural fluid. Initially the fluid was serosanguineous later became bright red with sudden drop in the hemoglobin from 9 to 5.5. 1 unit of PRBC was transfused. Dr. Carey was consulted, VATS and decortication surgery was done on 08/26/2025. TAWANA, TB QuantiFERON gold test negative Possible pulmonary renal syndrome Currently on Zosyn 3.375q8. Day 4 Uncontrolled type 1 diabetes mellitus peripheral neuropathy A1c is 10.2 and glucose is 200s On low dose Humalog protocol and Lantus 18 units Severe protein malnutrition Hypoalbuminemia Pedal edema Serum albumin is 1.4 Total protein is 5.0 On ensure en live p.o. t.i.dGuero Villaseñor M.D PGY2 Nephrology Resident. Date of Service: Aug 28, 2025 Billing Provider: DIANA TANNER III, PRAVAHIKA, RES Aug 28, 2025 10:36
--- NOTE | 2025-08-28 10:36 | PROGRESS NOTE ---
Progress Note CV Providers to CC ~ Antibiotics Ordered?: Yes Subjective Subjective S/P VATS/ decort, evacuation of hematoma POD # 3. His pain is a bit better managed today. Continued periph and scrotal edema but a bit better. CT output 70 past 24 hours and serous. Objective Vitals Vital Signs Date Time Temp Pulse Resp B/P (MAP) Pulse Ox O2 Delivery O2 Flow Rate FiO2 08/28/25 07:28 16 08/28/25 06:00 96.9 97 121/75 (90) 96 Room Air 08/26/25 14:00 2.0 08/24/25 20:00 21 Lab Results: 08/28/25 0657 08/28/25 0657 Objective Lungs - diminished R base, CXR not much change Heart - RRR, SR Extr - 2+ edema and scrotal edema Incisions - dsgs CDI Coagulation Studies Laboratory Tests Test 08/24/25 09:47 Prothrombin Time 11.5 SECONDS (9.0-12.0) INR International Normalized Ratio 1.1 INR Activated Partial Thromboplast Time 35 SECONDS (22-32) H Coagulation Comments Cardiac Rhythm: Sinus Rhythm, Sinus Tachycardia Problem\Assessment\Plan Additional Plan POD # 3 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 Will give Lasix [address] can likely come out in AM and DC home per hospitalist service - abx per ID. F/U 1 week with our office. Sepsis Screening Reassessment Date: Aug 28, 2025 Supervising Co-signing Provider: IDANIA Yeager Aug 28, 2025 10:36
--- NOTE | 2025-08-28 18:53 | PROGRESS NOTE- Residence ---
Progress Note - Resident Providers to CC Resident Creating Document: RANDALL JIMENES RES ~ Antibiotic Timeout Antibiotic Ordered?: Yes Subjective Patient was seen and examined at the bedside. Status post right VATS and evacuation of hematoma, decortication surgery by Dr. Carey on 08/26/2025. Chest tube output of 70 mL. Patient is comfortably lying in the bed but with a little bit of pain over the right side of the chest .Patient's kidney function is improving, has a urine output of 0.86 mL/kg per hour, the creatinine is almost at the baseline. Per thoracic surgeon team patient may probably out of the chest tube on tomorrow. Objective Vital Signs Date Time Temp Pulse Resp B/P (MAP) Pulse Ox O2 Delivery O2 Flow Rate FiO2 08/28/25 16:05 100 16 Room Air 0.0 08/28/25 15:56 96 21 08/28/25 11:00 97.8 119/67 (84) Result Diagram: 08/28/2565608/28/25 0657 General: Awake and alert, in mild distress. Not in acute distress. With the 2 chest tubes HEENT: Conjunctiva pink, Sclera clear, Mucus Membranes moist Neck: No masses and tenderness Resp: Unlabored. Decreased breath sounds in the right lung base. fine inspiratory crepitations are heard in bilateral lower zone more on the right side than the left. No wheezing noted. Cardiovascular: Regular Rate and rhythm, normal S1 and S2 without murmur, rub or gallop Abdomen: Slightly distended, soft and nontender, no organomegaly, no guarding and rigidity, bowel sounds present Neuro: No focal weakness in the upper and lower limb muscles, normal reflexes bilaterally. Cranial nerves II-XII grossly intact Extremities: 1+ lower extremity peripheral edema (chronic) Skin: Warm and Dry Psych: Calm and cooperative at the time of my visit. Coagulation Studies Laboratory Tests Test 08/24/25 09:47 Prothrombin Time 11.5 SECONDS (9.0-12.0) INR International Normalized Ratio 1.1 INR Activated Partial Thromboplast Time 35 SECONDS (22-32) H Coagulation Comments Advance Care Planning Advanced Care plannin - 30 Minutes Plan Plan Sepsis 2/2 bilateral pneumonia Unresolved Right pleural effusion likely secondary to parapneumonic effusion possible right hemothorax Covering Gram-positive, Gram-negative, atypical, anaerobic bacteria Failed previous therapy Right hydropneumothorax Right empyema Status post chest tube thoracostomy Right trapped lung Right-sided chest wall hematoma Status post VATS decortication surgery, POD day 3 Management plan per thoracic surgeon. This is a 30-year-old male with past medical history of type 1 diabetes mellitus, transferred from [place] due to right-sided loculated pleural effusion. Patient was previously admitted at [place] on August 02 for pneumonia with parapneumonic effusion, was treated with thoracocentesis, chest tube and IV antibiotics, chest tube was removed and he was discharged on August 10. This is the 1st episode of pneumonia, no history of tobacco use or drugs. He presented again with worsening shortness of breadth. Chest CT done during this visit showed right hydropneumothorax, multiloculated right pleural effusion. Chest tube was placed on 08/20/[address] Hernandez, drained almost more than a gal of pleural fluid. Initially the fluid was serosanguineous later became bright red with sudden drop in the hemoglobin from 9 to 5.5. 1 unit of PRBC was transfused. Dr. Carey was consulted, VATS and decortication surgery was done on 08/26/2025. During his stay in the hospital the patient developed NAA, creatinine 2.35 from 1.73 at the time of admission. Which is getting better slowly, returning to baseline with a creatinine of 1.28. Urine analysis shows a urine protein of > 300, could be secondary to diabetic nephropathy, would need further evaluation and outpatient. Studies for pulmonary renal syndrome pending. Uncontrolled type 1 diabetes mellitus peripheral neuropathy A1c is 10.2 and glucose is in 193 On high dose Humalog protocol and Lantus 18 units Goal blood sugar between 140 and 180. Acute kidney injury likely 2/2 renal tubular stasis, improving Above likely secondary to sepsis, diabetic nephropathy Can not rule out nephrotic syndrome Hyponatremia, resolved Hypochloremia, resolved Likely secondary to decreased perfusion to kidneys because of acute blood loss Patient has been diabetic since age 10, there could be some underlying chronic kidney disease. Baseline kidney function is not known. Creatinine is slowly getting better, 1.28 today with a GFR of 66. Urine output-0.86 mL/kg per hour Negative HIV, HBsAg Renal ultrasound showed echogenic kidneys. Started on IV fluids LR@ 100 mL/hour Avoid nephrotoxin agents, avoid [place], morphine for pain management Strict I&Os Proteinuria Based on 03/17/2025 labs, UPCR 152/92= 1.5, for a healthy young man muscle mass, we tailored to about 1.6 g of creatinine a day, 1.5x1.6= 2.4 g of protein a day, showing sub nephrotic to nephrotic range of proteinuria This could be secondary to diabetic nephropathy, requiring out patient follow up, Consider initiating lisinopril once the patient is more stable. TAWANA negative, follow up with Anca, C3, C4, anti GBM antibodies for further workup to rule out other renal pulmonary syndrome. Severe protein malnutrition Hypoalbuminemia Pedal edema Serum albumin is 1.4 Total protein is 5.1 On ensure en live p.o. t.i.d. Normocytic normochromic Anemia secondary to acute blood loss Secondary to Possible right hemothorax Reactive thrombocytosis Likely secondary to hemorrhagic effusion in the chest tube Hemoglobin is about 7.8 Received a total of 6 units of blood Continue to monitor H and H Transfuse if HGB< 7. Code Status: Full code DVT prophylaxis: SCDs Analgesia/sedation: Tramadol, acetaminophen, lidocaine for local application Line/tube: PIV GI prophylaxis: None Nutrition: 75 g Carb controlled diet Prognosis: Guarded Physical therapy: Ordered We spent more than 35 minutes of critical care time with the patient. Disposition: Patient improved significantly over the course of hospitalization. Per Thoracic surgeon team-chest tube may be removed on tomorrow patient may likely discharge on tomorrow rehab versus home Randall Jimenes Internal medicine resident, PGY 2 Date of Service: Aug 28, 2025 Billing Provider: GRACIE MERCEDES MD, VENKATESH, RES Aug 28, 2025 18:53
[2025-08-28 18:56] LABS: OSMOLALITY UA 326.0 MOSM/K (50-1400)
[2025-08-28 19:05] LABS: CREATININE,URINE RANDOM 26.0 MG/DL; TOTAL PROTEIN,URINE RANDOM 76.1 MG/DL; UA UREA RANDOM 195.0 MG/DL
--- NOTE | 2025-08-28 20:04 | PROGRESS NOTE ---
Progress Note ID Providers to CC ~ Progress Note Progress Note: Antibiotic Days Zosyn 9 Lines PIV Micro 08/19 Blood- negative 08/21 Pleural- negative 08/25 Operative- negative Subjective: Patient still has his chest tubes but he was seen up on the floor talking to the primary team about discharge planning. Objective Vitals: Afebrile, 100, 12, 118/71, 96% on RA General: Alert, NAD CV: Regular RESP: Clear anteriorly, chest tubes in place ABD: Soft, nontender EXT: no rash, edema LINES:PIV ok Laboratory Tests 08/28/25 06:57 Assessment // R sided empyema s/p VATS with decortication, evacuation hematoma on 08/25 with operative cultures (taken on Zosyn) nonrevealing. However, prior cultures, including those at [facility] were also negative // Acute vs CKD- improving // DM, A1c 10.2 // NKDA Plan -Continue Zosyn -Will need antibiotics, the above or the empiric PO equivalent for 2 weeks post- surgery -Chest tube per CVSx -Monitor WBC count, Cr -Will continue to follow COLEMAN IZQUIERDO DO Aug 28, 2025 20:04
[2025-08-29 02:00] VITALS: BP 125/69; PULSE 98; RESP 18; TEMP 97.1; O2SAT 95
[2025-08-29 06:00] VITALS: BP 132/67; PULSE 95; RESP 18; TEMP 98.3; O2SAT 96
[2025-08-29 06:47] LABS: MEAN PLATELET VOLUME 6.3 FL (7.4-10.4); RED CELL DISTRIBUTION WIDTH 14.4 % (11.5-14.5)
[2025-08-29 07:03] LABS: CREATININE 1.47 MG/DL (0.60-1.10); TOTAL CARBON DIOXIDE 35.8 MMOL/L (24-32); eCRCL 69 ML/MIN; eGFR 57 ML/MIN
--- NOTE | 2025-08-29 08:19 | RADIOLOGY REPORT ---
CHEST RADIOGRAPH Indication: s/p R VATS, decortication Technique: Portable upright AP view of the chest was performed. Comparison: DI CHEST,SINGLE VIEW on DOS: 08/28/25, DI CHEST,SINGLE VIEW on DOS: 08/27/25, DI CHEST,SINGLE VIEW on DOS: 08/26/25, DI CHEST,SINGLE VIEW on DOS: 08/25/25, DI CHEST,SINGLE VIEW on DOS: 08/24/25, DI CHEST,SINGLE VIEW on DOS: 08/28/25 FINDINGS: Stable 3 large bore right-sided chest tubes. There are patchy opacities throughout the right lung. There are patchy opacities in the left lung base. No pneumothorax is seen bilaterally. The heart is borderline enlarged. IMPRESSION: 1. No interval change.
[2025-08-29 08:20] VITALS: PULSE 104; RESP 18; O2SAT 95
[2025-08-29 08:25] VITALS: PULSE 104; RESP 16
--- NOTE | 2025-08-29 08:28 | PROGRESS NOTE ---
Progress Note CV Providers to CC ~ Progress Note: S/P VATS/ decort, evacuation of hematoma POD # 4 Antibiotics Ordered?: Yes If Yes, Indications?: empyema Objective Vitals Vital Signs Date Time Temp Pulse Resp B/P (MAP) Pulse Ox O2 Delivery O2 Flow Rate FiO2 08/29/25 07:49 16 08/29/25 06:00 95 08/29/25 02:00 97.1 125/69 (87) 95 Room Air 08/28/25 16:05 0.0 08/28/25 15:56 21 Lab Results: 08/29/25 0612 08/29/25 0612 Objective Afebrile VSS Awake and alert non labored respirations on RA bilat breath sounds present CXR reviewed with Dr. Dozier - Right pleural space continues to clear. No ptx chest tube output continues to diminish - remains serous no air leak noted in chamber Coagulation Studies Laboratory Tests Test 08/24/25 09:47 Prothrombin Time 11.5 SECONDS (9.0-12.0) INR International Normalized Ratio 1.1 INR Activated Partial Thromboplast Time 35 SECONDS (22-32) H Coagulation Comments Cardiac Rhythm: Sinus Rhythm, Sinus Tachycardia Problem\Assessment\Plan Problems/Diagnosis: (1) S/P video-assisted thoracoscopic surgery (VATS) Assessment & Plan: pleural drainage remains serous and continues to diminish cxr is satisfactory Chest tubes removed this morning. OK for discharge from CT surgery standpoint f/u in one week with CXR (2) Empyema PELON ROCHE Aug 29, 2025 08:28
[2025-08-29 10:00] VITALS: BP 120/71; PULSE 101; RESP 16; TEMP 97.9; O2SAT 95
[2025-08-29] MEDS ORDERED: LACT1CAP26 PO (10:59)
[2025-08-29] MEDS ORDERED: PANT40TA54 PO (10:59)
--- NOTE | 2025-08-29 11:02 | PROGRESS NOTE- Residence ---
Progress Note - Resident Providers to CC Resident Creating Document: SEEMA VILLASEÑOR RES ~ Antibiotic Timeout Antibiotic Ordered?: Yes Subjective Patient was seen and examined at the bedside. Status post right VATS and evacuation of hematoma, decortication surgery by Dr. Carey on 08/26/2025. Patient appears very energetic today. Recommended him to follow up outpatient after he was discharged from the hospital for diabetic nephropathy. His kidney function got worse today, he was on Lasix 40 b.i.d.. Recommended to stop the Lasix and increased normal oral fluid intake. Patient was in ATN, post ATN expecting the patient to have polyuria which will improve the scrotal edema. Also encouraged physical therapy which will also help with the edema. Ordered 250 mL of albumin to improve the edema. Objective Vital Signs Date Time Temp Pulse Resp B/P (MAP) Pulse Ox O2 Delivery O2 Flow Rate FiO2 08/29/25 10:00 97.9 101 16 120/71 (87) 95 Room Air 08/29/25 08:25 0.0 08/29/25 08:20 21 Result Diagram: 08/29/25 0612 08/29/25 0612 General: Awake and alert, in mild distress. Not in acute distress. Two chest tubes in the right side HEENT: Conjunctiva pink, Sclera clear, Mucus Membranes moist Neck: No masses and tenderness Resp: Unlabored. Decreased breath sounds in the right lung base. fine inspiratory crepitations are heard in bilateral lower zone. No wheezing noted. Cardiovascular: Regular Rate and rhythm, normal S1 and S2 without murmur, rub or gallop Abdomen: Slightly distended, soft and nontender, no organomegaly, no guarding and rigidity, bowel sounds present Neuro: No focal weakness in the upper and lower limb muscles, normal reflexes bilaterally. Cranial nerves II-XII grossly intact Extremities: 1+ lower extremity peripheral edema (chronic) Skin: Warm and Dry Psych: Calm and cooperative at the time of my visit. Coagulation Studies Laboratory Tests Test 08/24/25 09:47 Prothrombin Time 11.5 SECONDS (9.0-12.0) INR International Normalized Ratio 1.1 INR Activated Partial Thromboplast Time 35 SECONDS (22-32) H Coagulation Comments Plan Plan Assesment This is a 30-year-old male with past medical history of type 1 diabetes mellitus, transferred from [place] due to right-sided loculated pleural effusion. Patient was previously admitted at [place] on August 02 for pneumonia with parapneumonic effusion, was treated with thoracocentesis, chest tube and IV antibiotics, chest tube was removed and he was discharged on August 10. This is the 1st episode of pneumonia, no history of tobacco use or drugs. He presented again with worsening shortness of breadth. Chest CT done during this visit showed right hydropneumothorax, multiloculated right pleural effusion. Chest tube was placed on 08/20/[address] Hernandez, drained almost more than a gal of pleural fluid. Initially the fluid was serosanguineous later became bright red with sudden drop in the hemoglobin from 9 to 5.5. 1 unit of PRBC was transfused. Dr. Carey was consulted, VATS and decortication surgery was done on 08/26/2025. During his stay in the hospital the patient developed NAA, creatinine 2.35 from 1.73 at the time of admission. Which is getting better slowly, returning to baseline with a creatinine of 1.28. Urine analysis shows a urine protein of > 300, could be secondary to diabetic nephropathy, would need further evaluation and outpatient. Studies for pulmonary renal syndrome pending. Plan NAA Likely secondary to decreased perfusion to kidneys because of acute blood loss Patient has been diabetic since age 10, there could be some underlying chronic kidney disease. Baseline kidney function is not known. Creatinine is getting worse after he got Lasix, two doses of Lasix for scrotal edema 1.47 compared to 1.28 yesterday. Urine output-1.68 mL/kg per hour Plan Lasix discontinued, increased normal oral fluid intake. One dose of albumin 200 mL ordered to to improve edema. Encouraged normal oral fluid intake. If kidney function continues to get works he might need some fluids Renal ultrasound showed echogenic kidneys. Avoid nephrotoxin agents, avoid [place], morphine for pain management Strict I&Os Proteinuria Hypoalbuminemia Based on 03/17/2025 labs, UPCR 152/92= 1.5, for a healthy young man muscle mass, we tailored to about 1.6 g of creatinine a day, 1.5x1.6= 2.4 g of protein a day, showing sub nephrotic to nephrotic range of proteinuria. Albumin 1.6 This could be secondary to diabetic nephropathy, requiring out patient follow up, One dose of albumin 200 mL ordered Consider initiating lisinopril once the patient is more stable. TAWANA negative, pending Anca, C3, C4, anti GBM antibodies for further workup to rule out other renal pulmonary syndrome. HIV HBsAg negative Acute blood loss anemia-improving Likely secondary to hemorrhagic effusion in the chest tube Hemoglobin is about 8.2 Received a total of 6 units of blood Continue to monitor H and H Transfuse if HGB< 7. Sepsis secondary to bilateral pneumonia Pleural effusion secondary to parapneumonic effusion vs malignancy s/p chest tube thoracotomy Pleural effusion evolved into hemorrhagic effusion s/p VATS, evacuation of hematoma and decortication on 08/26/25 At the time of admission patient had multiloculated right pleural effusion positive Lights criteria. Chest tube was placed on 08/20/[address] Hernandez, drained almost more than a gal of pleural fluid. Initially the fluid was serosanguineous later became bright red with sudden drop in the hemoglobin from 9 to 5.5. 1 unit of PRBC was transfused. Dr. Carey was consulted, VATS and decortication surgery was done on 08/26/2025. TAWANA, TB QuantiFERON gold test negative Possible pulmonary renal syndrome Currently on Zosyn 3.375q8. Day 5 Uncontrolled type 1 diabetes mellitus peripheral neuropathy A1c is 10.2 and glucose is 200s On low dose Humalog protocol and Lantus 18 units Severe protein malnutrition Hypoalbuminemia Pedal edema Serum albumin is 1.4 Total protein is 5.0 On ensure en live p.o. t.i.d. Seema Villaseñor M.D PGY2 Nephrology Resident. Date of Service: Aug 29, 2025 Billing Provider: DIANA TANNER III, PRAVAHIKA, RES Aug 29, 2025 11:02
[2025-08-29] MEDS: albumin (Human) 5% 250ml 250 ML IV ONE (11:40)
--- NOTE | 2025-08-29 12:10 | PROGRESS NOTE ---
Progress Note ID Providers to CC ~ Progress Note Progress Note: Antibiotic Days Zosyn 10 Lines PIV Micro 08/19 Blood- negative 08/21 Pleural- negative 08/25 Operative- negative Subjective: Patient's chest tubes are out and his family was at bedside Objective Vitals: Afebrile, 95, 18, 132/67, 96% on RA General: Alert, NAD CV: Regular RESP: Clear anteriorly, chest tubes out ABD: Soft, nontender EXT: no rash, edema LINES:PIV ok Laboratory Tests 08/29/25 06:12 Assessment // R sided empyema s/p VATS with decortication, evacuation hematoma on 08/25 with operative cultures (taken on Zosyn) nonrevealing. However, prior cultures, including those at [facility] were also negative // Acute vs CKD- improving. GFR 57 today // DM, A1c 10.2 // NKDA Plan -Antibiotics can be changed to PO Levaquin for a 2 week course -He was given info for follow up in the ID office COLEMAN IZQUIERDO DO Aug 29, 2025 12:10
[2025-08-29] MEDS ORDERED: LEVO750T68 PO (13:28)
--- NOTE | 2025-08-29 18:46 | DISCHARGE SUMMARY-Residence ---
Discharge Summary Providers to CC Resident Creating Document: ANDER JIMENES RES ~ Discharge Summary Hospital Course DATE OF ADMISSION: DATE OF DISCHARGE: Condition on DC: Stable *Problems/Diagnosis: (1) S/P video-assisted thoracoscopic surgery (VATS) (2) Empyema Date of Service: Aug 29, 2025 Billing Provider: GRACIE MERCEDES MD, VENKATESH, ASCENCION Aug 29, 2025 18:46
[2025-08-31 07:16] LABS: ANTISTREPTOLYSIN O AB 30.0 IU/mL (0.0-200.0); COMPLEMENT C3, SERUM 109.0 mg/dL (82-167); COMPLEMENT C4, SERUM 24.0 mg/dL (12-38)
== END 2025-08-29 14:00 | disposition home health service (06) | DRG 853 ==
LOC: ER 23:35 → ED HOLD 08-19 03:02 → EDBEDREQ 08-19 06:04 → ORTHO 4S 08-19 08:45 → PCU 3S 08-24 12:00 → CICU 2S 08-25 11:43 → PCU 3S 08-26 19:37
PROVIDERS: ADMIT Internal Medicine; ATTEND Internal Medicine
PROC: 0W9930Z Drainage of Right Pleural Cavity with Drainage Device, Percutaneous Approach (ICD-10-PCS; 2025-08-19)
PROC: 30233N1 Transfusion of Nonautologous Red Blood Cells into Peripheral Vein, Percutaneous Approach (ICD-10-PCS; 2025-08-24)
PROC: 0BCN0ZZ Extirpation of Matter from Right Pleura, Open Approach (ICD-10-PCS; 2025-08-25)
PROC: 0W9930Z Drainage of Right Pleural Cavity with Drainage Device, Percutaneous Approach (ICD-10-PCS; 2025-08-25)
PROC: 0BNF4ZZ Release Right Lower Lung Lobe, Percutaneous Endoscopic Approach (ICD-10-PCS; principal; 2025-08-25 08:30)
DX: A41.9 Sepsis, unspecified organism (principal); J18.9 Pneumonia, unspecified organism; J86.9 Pyothorax without fistula; J91.8 Pleural effusion in other conditions classified elsewhere; N50.89 Other specified disorders of the male genital organs; E10.21 Type 1 diabetes mellitus with diabetic nephropathy; Z79.4 Long term (current) use of insulin
CPT/HCPCS: 32557; 93306; 96372; 99285; Z7506; Z7508; 36415; 36430; 36600; 71045; 71250; 74176; 76770; 80047; 80053; 80305; 81001; 82570; 82803; 82945; 82948; 83036; 83605; 83615; 83735; 83880; 83930; 83935; 83986; 84145; 84156; 84157; 84300; 84540; 85008; 85018; 85025; 85027; 85610; 85651; 85730; 86038; 86060; 86140; 86160; 86256; 86703; 86705; 86885; 86900; 86901; 86920; 87040; 87070; 87075; 87081; 87102; 87207; 87340; 89051; 93005; 93880; 93970; 94668; 94760; 94799; 97116; 97162; 97530; A4215; A4421; A4615; A4618; A4628; A5200; A6223; A6224; A6253; A6258; A6266; A6402; A6449; A7048; C1729; C1758; C1769; G0378; J0131; J0456; J0665; J0690; J0780; J1100; J1644; J1815; J1938; J1956; J2003; J2250; J2270; J2405; J2470; J2543; J2704; J2765; J2997; J3010; J3490; J7030; J7040; J7120; J7121; P9016; P9045

== ENCOUNTER 2025-09-12 09:37 | Outpatient (CLI) | payer BC ==
[~2025-09-12 09:37] MED LIST: INSU100I8 SQ; INSU200I4 SQ; LACT1CAP26 PO; LEVO750T68 PO; PANT40TA54 PO
--- NOTE | 2025-09-12 11:06 | RADIOLOGY REPORT ---
DI CHEST,TWO VIEWS CLINICAL HISTORY: S/P R VATS COMPARISON: DI CHEST,SINGLE VIEW on DOS: 08/29/25, DI CHEST,SINGLE VIEW on DOS: 08/28/25, DI CHEST,SINGLE VIEW on DOS: 08/27/25, DI CHEST,SINGLE VIEW on DOS: 08/26/25, DI CHEST,SINGLE VIEW on DOS: 08/25/25 TECHNIQUE: Frontal and lateral view of the chest was obtained FINDINGS: Lines and Tubes: Interval removal of right chest tube. Lungs: Small right pleural effusion and right interstitial opacities. Cardiomediastinal contours: Unremarkable Bones: No acute osseous abnormality. IMPRESSION: Small right pleural effusion and right interstitial opacities.
== END 2025-09-12 23:59 | disposition home or self-care (01) ==
LOC: RAD 09:37
PROVIDERS: ATTEND Thoracic Surgery (Cardiothoracic Vascular Surgery)
DX: J90 Pleural effusion, not elsewhere classified (principal); J98.4 Other disorders of lung; Z98.890 Other specified postprocedural states
CPT/HCPCS: 71046